=== PATIENT | female | born 1940 | race Caucasian/White ===

== ENCOUNTER 2017-11-05 16:35 | Emergency (ER) | payer MEDICARE ==
[2017-11-05] MEDS ORDERED: predniSONE TAB* 20 MG PO ONE (17:17)
--- NOTE | 2017-11-05 17:28 | RAD ---
HISTORY: Shortness of breath COMPARISONS: November 01, 2014 VIEWS: 4: Frontal dual-energy and lateral views of the chest. FINDINGS: CARDIOMEDIASTINAL SILHOUETTE: The cardiomediastinal silhouette is normal. PERLA: The perla are normal. PLEURA: The costophrenic angles are sharp. No pleural abnormalities are noted. LUNG PARENCHYMA: The lungs are clear. ABDOMEN: The upper abdomen is clear. There is no subphrenic gas. BONES AND SOFT TISSUES: There is post surgical change to the right shoulder. OTHER: None. IMPRESSION: NO ACTIVE CARDIOPULMONARY DISEASE.
[2017-11-05 17:32] VITALS: BP 171/89
--- NOTE | 2017-11-05 17:50 | ED ---
Syed George Jennifer, scribed for Matteo Hobbs MD on 11/05/17 at 1719 . Respiratory - HPI Summary HPI Summary: The patient is a 77 year old female who presents with difficulties breathing from an asthma attack this morning that is now resolved. The patient complains of coughing and wheezing. She denies fever, chest pressure, chest tightness, abdominal pain. Her difficulty breathing was alleviated by an inhaler treatment. - History of Current Complaint Chief Complaint: EDUpperRespComplaint Stated Complaint: ASTHMA EVAL Time Seen by Provider: 11/05/17 17:11 Hx Obtained From: Patient Onset/Duration: Sudden Onset, Lasting Hours - this morning, Resolved Timing: Intermittent Episodes Lasting: - few hours Initial Severity: Mild Current Severity: None Pain Intensity: 0 Character: Wheezing, Cough (Nonproductive) Sputum Amount: None Aggravating Factor(s): Nothing Alleviating Factor(s): Other - inhaler treatment - Allergy/Home Medications Allergies/Adverse Reactions: Allergies Allergy/AdvReac Type Severity Reaction Status Date / Time shellfish derived Allergy Anaphylatic Verified 11/05/17 16:42 Shock PMH/Surg Hx/FS Hx/Imm Hx Endocrine/Hematology History: Denies: Hx Diabetes Respiratory History: Reports: Hx Asthma Musculoskeletal History: Denies: Hx Osteoporosis Sensory History: Reports: Hx Contacts or Glasses - Cancer History Hx Chemotherapy: No Hx Radiation Therapy: No Infectious Disease History: No Infectious Disease History: Denies: Traveled Outside the [place] in Last 30 Days - Family History Known Family History: Negative: Renal Disease - Social History Alcohol Use: Occasionally Substance Use Type: Reports: None Hx Tobacco Use: Yes - FORMER Smoking Status (MU): Former Smoker Review of Systems Negative: Fever Negative: Chest Pain Positive: Shortness Of Breath - now resolved, Cough, Other - wheezing Negative: Abdominal Pain All Other Systems Reviewed And Are Negative: Yes Physical Exam - Summary Physical Exam Summary: Appearance: Well appearing, no pain distress Skin: warm, dry, reflects adequate perfusion Head/face: normal Eyes: EOMI, YAYO ENT: normal, throat clear Neck: supple, non-tender Respiratory: CTA, breath sounds present, no wheezes, respiratory rate is normal Cardiovascular: RRR, pulses symmetrical Abdomen: non-tender, soft Bowel Sounds: present Musculoskeletal: normal, strength/ROM intact Neuro: normal, sensory motor intact, A&Ox3 Triage Information Reviewed: Yes Vital Signs On Initial Exam: Initial Vitals Temp Pulse Resp BP Pulse Ox 97.8 F 75 20 159/61 98 11/05/17 16:37 11/05/17 16:37 11/05/17 16:37 11/05/17 16:37 11/05/17 16:37 Vital Signs Reviewed: Yes Diagnostics - Vital Signs Vital Signs Temp Pulse Resp BP Pulse Ox 11/05/17 16:37 97.8 F 75 20 159/61 98 - Laboratory Lab Statement: Any lab studies that have been ordered have been reviewed, and results considered in the medical decision making process. - Radiology CXR Xray Interpretation: No Acute Changes - NO ACTIVE CARDIOPULMONARY DISEASE. Dr. Hobbs has reviewed this report. Radiology Interpretation Completed By: Radiologist Disposition - Course Course Of Treatment: hx of asthma. Some mild sx this am. Feeling well now. Gave steroids, refilled HFA. F/U PMD. Rx for same. CXR neg. - Diagnoses Provider Diagnoses: Asthma exacerbation Discharge - Sign-Out/Discharge Documenting (check all that apply): Discharge/Admit/Transfer - Discharge Plan Condition: Good Disposition: HOME Prescriptions: Albuterol HFA INHALER* [Ventolin HFA Inhaler*] 2 puff INH Q4H PRN #1 mdi PRN Reason: Shortness Of Breath predniSONE TAB* [Deltasone TAB*] 50 mg PO DAILY #3 tab Patient Education Materials: Asthma (ED) Referrals: Jaleesa Ross MD [Primary Care Provider] - Additional Instructions: Call your doctor in the morning for follow up. Return with fever, wheezing, worse, new symptoms or other concerns as discussed. See your doctor to prescribe a controller medication for asthma. - Billing Disposition and Condition Condition: GOOD Disposition: HOME The documentation as recorded by the Syed meehan Jennifer accurately reflects the service I personally performed and the decisions made by , Matteo Hobbs MD.
== END 2017-11-05 17:29 | disposition home or self-care (01) ==
LOC: ED 16:35
DX: J45.901 Unspecified asthma with (acute) exacerbation (principal); Z87.891 Personal history of nicotine dependence; R06.02 Shortness of breath
CPT/HCPCS: 71046; 99282; J7512

== ENCOUNTER 2018-11-24 15:30 | Observation (INO) | payer MEDICARE ==
[2018-11-24] MEDS ORDERED: Albuterol 0.5% CONC NEB.SOL* 5 MG/ML 20 ml BOT INH ONE ×2 (19:35→21:43)
[2018-11-24] MEDS ORDERED: methylPREDNISolone 125 MG* 2 ML VIAL IV ONE (19:35)
--- NOTE | 2018-11-24 19:42 | ED ---
Shortness of Breath - HPI Summary HPI Summary: Patient is a 78 y/o F presenting to ED with complaints of SOB and wheezing. Sx onset a week ago and progressively worsened, resulting in today's ED visit. PMHx of asthma. Patient notes that she has used albuterol inhaler but still has experienced Sx. Patient is supposed to be taking Flovent regularly but has only been taking it as needed per patient's son. Son reports that the patient has not had any major asthma attacks in recent years. The son additionally notes that the patient's present wheezing is worse than he has previously heard. FMHx of cardiac disease endorsed. Patient notes that she had a "small bout" of Lyme disease a few years ago. Hx of HTN, patient claims that she has been prescribed lisinopril but does not take it as prescribed. PSHx of bilateral hip replacement , right shoulder and left foot surgery. Patient is a former smoker, denies substance usage but endorses occasional alcohol usage. On triage, pain is denied , movement is noted to aggravate Sx. Home medications and allergies are reviewed. Grandson and son are present in the room. - History of Current Complaint Chief Complaint: EDAsthma Time Seen by Provider: 11/24/18 19:26 Hx Obtained From: Patient, Family/Cigar Roller Onset/Duration: Lasting Weeks - one week ago, Still Present, Worse Since Timing: Constant Current Severity: None - pain denied Dyspnea At: Exertion Aggrevating Factors: Movement Alleviating Factors: Nothing Associated Signs & Symptoms: Wheezing - Allergy/Home Medications Allergies/Adverse Reactions: Allergies Allergy/AdvReac Type Severity Reaction Status Date / Time shellfish derived Allergy Anaphylatic Verified 11/18/18 13:51 Shock Home Medications: Home Medications Fluticasone HFA 110 mcg(NF) [Flovent HFA 110 mcg(NF)] 110 mcg INH BID 11/24/18 [ History Confirmed 11/24/18] PMH/Surg Hx/FS Hx/Imm Hx Endocrine/Hematology History: Denies: Hx Diabetes Cardiovascular History: Reports: Hx Hypertension Denies: Hx Pacemaker/ICD Respiratory History: Reports: Hx Asthma History: Denies: Hx Renal Disease Musculoskeletal History: Denies: Hx Osteoporosis Sensory History: Reports: Hx Contacts or Glasses Denies: Hx Hearing Aid Opthamlomology History: Reports: Hx Contacts or Glasses Psychiatric History: Denies: Hx Panic Disorder - Cancer History Hx Chemotherapy: No Hx Radiation Therapy: No - Surgical History Surgery Procedure, Year, and Place: BILATERAL HIPS REPLACED. RIGHT SHOULDER. LEFT FOOT Infectious Disease History: No Infectious Disease History: Denies: Traveled Outside the [place] in Last 30 Days - Family History Known Family History: Positive: Cardiac Disease Negative: Renal Disease - Social History Alcohol Use: Occasionally Alcohol Amount: Glass of wine Hx Substance Use: No Substance Use Type: Reports: None Hx Tobacco Use: Yes - FORMER Smoking Status (MU): Former Smoker Review of Systems Negative: Fever - ON VTIALS, TEMP IS 99.4 F Respiratory: Other - POSITIVE - WHEEZING Positive: Shortness Of Breath All Other Systems Reviewed And Are Negative: Yes Physical Exam - Summary Physical Exam Summary: Appearance: Well-appearing, Well-nourished, lying in bed comfortably Skin: Warm, dry, no obvious rash Eyes: sclera anicteric, no conjunctival pallor ENT: mucous membranes moist, pharynx appears normal Neck: Supple, nontender Respiratory: Mild respiratory distress is noted with any exertion but none at rest. She speaks in full sentences. Diffuse expiratory wheezing with prolonged expiratory phase. Cardiovascular: Normal S1, S2. No murmurs. Normal distal pulses in tibial and radial bilaterally. Abdomen: Soft, nontender, normal active bowel sounds present Musculoskeletal: Normal, Strength/ROM Intact Neurological: A&Ox3, awake and alert, mentation is normal, speech is fluent and appropriate Psychiatric: affect is normal, does not appear anxious or depressed Triage Information Reviewed: Yes Vital Signs On Initial Exam: Initial Vitals Temp Pulse Resp BP Pulse Ox 99.4 F 105 22 148/90 96 11/24/18 15:34 11/24/18 15:34 11/24/18 15:34 11/24/18 15:34 11/24/18 15:34 Vital Signs Reviewed: Yes Diagnostics - Vital Signs Vital Signs Temp Pulse Resp BP Pulse Ox 11/24/18 17:23 99.5 F 82 22 158/104 95 11/24/18 15:34 99.4 F 105 22 148/90 96 - Laboratory Result Diagrams: 11/24/18 20:16 11/24/18 20:16 Lab Statement: Any lab studies that have been ordered have been reviewed, and results considered in the medical decision making process. - Radiology CXR Radiology Interpretation Completed By: ED Physician Summary of Radiographic Findings: No acute process, pending official report. Re-Evaluation - Re-Evaluation First Eval Re-Evaluation Time: 21:42 Comment: Patient reports no improvement of Sx, results of labs and tests discussed. She is agreeable with admission. Course/Dx - Course Course Of Treatment: Patient is a 78 y/o F presenting to ED with complaints of SOB and wheezing. Sx onset a week ago and progressively worsened, resulting in today's ED visit. PMHx of asthma. Patient notes that she has used albuterol inhaler but still has experienced Sx. Patient is supposed to be taking Flovent regularly but has only been taking it as needed per patient's son. Son reports that the patient has not had any major asthma attacks in recent years. The son additionally notes that the patient's present wheezing is worse than he has previously heard. On phyiscal exam, Mild respiratory distress is noted with any exertion but none at rest. She speaks in full sentences. Diffuse expiratory wheezing with prolonged expiratory phase. CXR showed no acute process. Labs showed Plt count 132, BUN/creatinine ratio 26.4, glucose 147. During ED course, patient received solu-medrol 125 mg IV ED ONCE ONE, magnesium sulfate 2 gm in 50 mls @ 50 mls/hr IVPB ED ONCE ONE, albuterol 5 ml INH .RATE = 10 mg/hr one x2. After medications, patient experienced no relief in Sx. Patient is agreeable with admission. Patient's case was discussed with Dr. Zavala, Dr. Zavala accepts for admission. - Diagnoses Provider Diagnoses: Asthma exacerbation - Physician Notifications Discussed Care of Patient With: Nancie Zavala Time Discussed With Above Provider: 21:46 Instructed by Provider To: Other - [id number] - Patient's case was discussed with Dr. Zavala, Dr. Zavala accepts for admission. - Critical Care Time Critical Care Time: 30-74 min - 30 minutes CCT Discharge - Sign-Out/Discharge Documenting (check all that apply): Patient Departure - admit Patient Received Moderate/Deep Sedation with Procedure: No - Discharge Plan Condition: Good Disposition: ADMITTED TO [facility] - Billing Disposition and Condition Condition: GOOD Disposition: Admitted to [facility] - Attestation Statements Document Initiated by Scribe: Yes Documenting Scribe: RALPH TAN Provider For Whom Scribe is Documenting (Include Credential): SHREE AMBRIZ MD Scribe Attestation: I, RALPH TAN, scribed for SHREE AMBRIZ MD on 11/25/18 at 0326. Scribe Documentation Reviewed: Yes Provider Attestation: The documentation as recorded by the scribeRALPH accurately reflects the service I personally performed and the decisions made by me, SHREE AMBRIZ MD Status of Scribe Document: Viewed
[2018-11-24 20:24] LABS: ABS Eosinophils 0.1 10^3/ul (0-0.6); ABS Monocytes 0.5 10^3/ul (0-0.8); ABS Neutrophils 2.4 10^3/ul (1.5-7.7); Eosinophil % 3.2 %; Hematocrit 40 % (35-47); Hemoglobin 13.1 g/dL (12.0-16.0); Lymphocyte % 24.6 %; Mean Corpuscular HGB Conc 33 g/dL (31-36); Mean Corpuscular Hemoglobin 30 pg (27-31); Mean Corpuscular Volume 91 fL (80-97); Mean Platelet Volume 9.9 fL (7.4-10.4); Platelet Count 132 10^3/uL (150-450); Red Blood Count 4.32 10^6 /uL (3.70-4.87); Red Cell Distribution Width 12 % (10.5-15); White Blood Count 4.1 10^3/uL (3.5-10.8)
[2018-11-24 20:39] LABS: Albumin 4.3 g/dL (3.2-5.2); BUN/Creatinine Ratio 26.4 (8-20); Calcium 9.9 mg/dL (8.6-10.3); EGFR African American 94.8 (>60); EGFR Non-African American 78.3 (>60); Globulin 2.2 g/dL (2-4); Potassium 3.6 mmol/L (3.5-5.0); Total Bilirubin 0.7 mg/dL (0.2-1.0); Total Protein 6.5 g/dL (6.4-8.9)
[2018-11-24] MEDS ORDERED: Magnesium Sulfate 2 GM IV* 2 GM/50 ML BAG IVPB ONE (21:43)
[2018-11-24] MEDS ORDERED: Al Hydrox/Mg Hydrox/Simet LIQ* 30 ML UDC PO PRN (22:55)
[2018-11-24] MEDS ORDERED: Acetaminophen TAB* 325 MG PO PRN (22:55)
[2018-11-24] MEDS ORDERED: Ondansetron INJ* 2 MG/ML VIAL IV PRN (22:55)
[2018-11-24] MEDS ORDERED: Senna TAB PO PRN (22:55)
[2018-11-24] MEDS ORDERED: Docusate CAP* 100 MG PO PRN (22:55)
[2018-11-24] MEDS ORDERED: Albuterol/Ipratropium NEB.SOL* Albuterol 2.5 MG/Ipratropium 0.5 MG 3 ML INH PRN (22:58)
[2018-11-24 23:01] LABS: C Reactive Protein 7.76 mg/L (<8.01)
[2018-11-24] MEDS ORDERED: Azithromycin 500 mg/250 ml NS 500 MG/250 ML BAG IVPB ONE (23:01)
[2018-11-24] MEDS ORDERED: Lactated Ringers 1000 ML Bag* 1,000 ML IV ONE (23:08)
[2018-11-25] MEDS: Albuterol 2.5 MG/3 ML NEB.SOL* (0.083%) INH SCH ×5 (00:32→16:09)
--- NOTE | 2018-11-25 01:34 | HP ---
CC: Jaleesa Ross MD* HISTORY AND PHYSICAL: DATE OF ADMISSION: 11/24/18 TIME OF EVALUATION: 2199 PRIMARY CARE PHYSICIAN: Jaleesa Ross MD CHIEF COMPLAINT: Shortness of breath and cough with wheeze. HISTORY OF PRESENT ILLNESS: This is a 78-year-old female with past medical history of asthma, who presents to the emergency room with 3 days of worsening wheeze and shortness of breath. The patient's symptoms began about 3 days ago. She was using her albuterol inhaler with no spacer with minimal relief. She also has Flovent, but she only uses that as needed and was not using it. She states she really has not been coughing. No fevers or chills. No chest pain. She does state she has seasonal allergies and she thinks she is taking Zyrtec, but she is not sure. No changes in her weight. No lower extremity swelling. She had a physical exam 2 weeks ago and it was unremarkable workup. Her son sates that when he goes upstairs to her house, he feels short of breath. He is worried about mold exposure in the house. No nausea, vomiting or diarrhea. She does have some constipation. No urinary symptoms. Otherwise, review of systems negative. In the emergency room, the patient had labs and imaging. She was given Solu-Medrol 25 mg, magnesium 2 g, albuterol noncontinuous and still having significant diffuse wheezing with tachycardia and referred to the hospitalist service for further evaluation. PAST MEDICAL HISTORY: 1. Asthma. 2. Hypertension. 3. Seasonal allergies. 4. The patient is being evaluated for left-sided headache issues, scheduled to see Dr. Garnica and supposed to have an MRI this week. 5. VIVIANA on CPAP MEDICATIONS: 1. Lisinopril 5 mg p.o. daily. 2. Flovent 110 mcg inhaled b.i.d. as needed. 3. Albuterol 2 puffs every 4 hours as needed. ALLERGIES: SHELLFISH allergy . FAMILY HISTORY: Mother in her 80s from a stroke. Father from respiratory issues, unclear of the age. SOCIAL HISTORY: The patient lives at home alone with her dogs. She is independent of her ADLs. She is a remote smoker, more than 40 years ago. At this time, she has a 10 pack year history. She has a glass of wine at bedtime. No illicit drug use. Her son, Papi Reese Jr., is her healthcare proxy. She is a full code. REVIEW OF SYSTEMS: A 14-point review of systems as mentioned in the HPI; otherwise, negative. PHYSICAL EXAMINATION GENERAL: No acute distress. Her son and grandson are sitting at the bedside. VITAL SIGNS: Temp is 99.5, pulse rate is 108, respiratory rate is 16, oxygen saturation 100% on 2 L, blood pressure 175/93. HEENT: Head: Normocephalic. Pupils are equal and reactive, anicteric. Oropharynx: Mucous membranes moist. NECK: Supple. No adenopathy. RESPIRATORY: Audible wheezing at the bedside. Bilateral diffuse expiratory wheezing with poor aeration. No increased work of breathing. CARDIAC: Tachycardia. Soft systolic murmur heard throughout. ABDOMEN: Soft, nontender, nondistended. EXTREMITIES: No clubbing, cyanosis, or edema; +2 DPs. NEUROLOGIC: Alert and oriented x3. No gross focal neurologic deficits. DIAGNOSTIC STUDIES/LAB DATA: White count 4.1, hemoglobin 13.1, hematocrit 40, platelets 132. Sodium 139, potassium 3.6, chloride 106, bicarb 25, BUN 19, creatinine 0.72, glucose 147. Radiographic Data: Chest x-ray unremarkable on wet read. ASSESSMENT: This is a 78-year-old female with a past medical history of asthma and seasonal allergy, sent to the emergency room with 3 days of worsening shortness of breath and wheeze. 1. Shortness of breath and wheeze. Assessment: The patient's history and physical are consistent for an asthma exacerbation most likely secondary to seasonal allergies. She does not have a white count. No findings on chest x-ray though official chest x-ray read has not been read. Plan: We will admit her for asthma exacerbation. Continue her on albuterol nebulizers q.2 hour p.r.n. and schedule q.4 hours and DuoNeb. We will continue her Flovent and continue her on prednisone 40 mg starting in the morning. We will start her on Flonase and Claritin, which is on formulary. We will also given her azithromycin for antiinflammatory component of asthma exacerbation. Recommend if no improvement, she should be evaluated by Dr. Marino. She has not seen a bulk delivery driver as an outpatient. We will also give her gentle IV fluids. 2. Chronic medical problem, hypertension. We will continue her on her lisinopril 5 mg p.o. daily. 3. FEN: Regular diet with gentle IV fluids. 4. DVT prophylaxis: The patient scores a high risk. We will place her on Lovenox 40 subcu daily. 5. Code status: Full code. PATIENT TIME: Greater than 45 minutes was spent doing the history and physical , more than half the time spent in direct patient contact. [id number]/CPS #: [id number] MTDEric
[2018-11-25] MEDS: Melatonin 3 MG TAB PO PRN ×2 (01:57→21:05)
[2018-11-25] MEDS: Enoxaparin(*) 40 MG/0.4 ML SYR SUBCUT SCH (05:35)
[2018-11-25 06:07] LABS: ABS Lymphocytes 0.3 10^3/ul (1.0-4.8); ABS Monocytes 0.1 10^3/ul (0-0.8); ABS Neutrophils 4.9 10^3/ul (1.5-7.7); Eosinophil % 0.1 %; Hematocrit 37 % (35-47); Hemoglobin 12.2 g/dL (12.0-16.0); Lymphocyte % 5.5 %; Mean Corpuscular HGB Conc 33 g/dL (31-36); Mean Corpuscular Hemoglobin 30 pg (27-31); Mean Corpuscular Volume 92 fL (80-97); Mean Platelet Volume 10.3 fL (7.4-10.4); Platelet Count 127 10^3/uL (150-450); Red Blood Count 4.03 10^6 /uL (3.70-4.87); Red Cell Distribution Width 12 % (10.5-15); White Blood Count 5.3 10^3/uL (3.5-10.8)
[2018-11-25 06:26] LABS: BUN/Creatinine Ratio 22.5 (8-20); Calcium 9.8 mg/dL (8.6-10.3); EGFR African American 96.3 (>60); EGFR Non-African American 79.6 (>60); Potassium 3.9 mmol/L (3.5-5.0)
[2018-11-25] MEDS ORDERED: predniSONE TAB* 20 MG PO SCH (09:00)
[2018-11-25] MEDS ORDERED: Pneumococcal *Vac Polyvalent 0.5 ML VIAL IM ONE (09:00)
[2018-11-25] MEDS ORDERED: LoraTADine TAB(NF) 10 MG TAB (AUTOSUB to CETIRIZINE) PO SCH (09:00)
[2018-11-25] MEDS ORDERED: Magnesium Sulfate 2 GM IV* 2 GM/50 ML BAG IVPB ONE (09:28)
[2018-11-25] MEDS: Cetirizine* 10 MG TAB PO SCH (10:32)
[2018-11-25] MEDS: methylPREDNISolone SOD 40 MG* 1 ML VIAL IV SCH ×2 (10:33→18:04)
[2018-11-25] MEDS: Mometasone/Formoter 200/5 MDI INH SCH ×2 (11:18→19:18)
[2018-11-25] MEDS: Fluticasone NASAL SPRAY 50MCG* 16 gm SPRAY BTL BOTH NARES SCH (12:10)
[2018-11-25] MEDS: ALPRAZolam TAB* 0.25 MG PO PRN ×2 (12:45→21:05)
--- NOTE | 2018-11-25 16:34 | PN ---
Subjective Date of Service: 11/25/18 Interval History: Patient seen and examined. Patient remains very wheezy and appears extremely anxious. Concerned about her dog and cannot get in touch with her son to take care of him. RN working with patient to resolve the issue. Patient states she has pain in her left ribs with deep inspiration and remains wheezy but not acutely short of breath. Denies chest pain, no n/v, no fever or chills. Objective Active Medications: Acetaminophen (Tylenol Tab*) 650 mg PO Q4H PRN PRN Reason: FEVER/PAIN Al Hydrox/Mg Hydrox/Simethicone (Maalox Plus*) 30 ml PO Q6H PRN PRN Reason: INDIGESTION Albuterol (Ventolin 2.5 Mg/3 Ml Neb.Lisa*) 2.5 mg INH Q4H [facility] Last Admin: 11/25/18 16:09 Dose: 2.5 mg Albuterol (Ventolin 2.5 Mg/3 Ml Neb.Lisa*) 2.5 mg INH Q2H PRN PRN Reason: SOB/WHEEZING Albuterol/Ipratropium (Duoneb (Albuterol 2.5 Mg/Ipratropium 0.5 Mg)) 1 neb INH Q4H PRN PRN Reason: SOB/WHEEZING Last Admin: 11/25/18 14:04 Dose: 1 neb Alprazolam (Xanax Tab*) 0.25 mg PO TID PRN PRN Reason: ANXIETY Last Admin: 11/25/18 12:45 Dose: 0.25 mg Benzonatate (Tessalon Cap*) 200 mg PO TID PRN PRN Reason: COUGH Cetirizine HCl (Zyrtec*) 10 mg PO DAILY [facility] Last Admin: 11/25/18 10:32 Dose: 10 mg Docusate Sodium (Colace Cap*) 100 mg PO BID PRN PRN Reason: CONSTIPATION Enoxaparin Sodium (Lovenox(*)) 40 mg SUBCUT Q24H [facility] Last Admin: 11/25/18 05:35 Dose: 40 mg Fluticasone Propionate (Flonase Nasal [place] 50mcg*) 2 spray BOTH NARES DAILY [facility] Last Admin: 11/25/18 12:10 Dose: 2 spray Azithromycin 250 mg/ Sodium (Chloride) 250 mls @ 250 mls/hr IVPB Q24H [facility] Melatonin (Melatonin) 3 mg PO BEDTIME PRN PRN Reason: SLEEP Last Admin: 11/25/18 01:57 Dose: 3 mg Methylprednisolone Sodium Succinate (Solu-Medrol 40 Mg) 40 mg IV Q8H [facility] Last Admin: 11/25/18 10:33 Dose: 40 mg Mometasone Furoate/Formoterol Fumar (Dulera 200/5 Mdi*) 2 puff INH BID [facility] Last Admin: 11/25/18 11:18 Dose: Not Given Ondansetron HCl (Zofran Inj*) 4 mg IV Q4H PRN PRN Reason: NAUSEA/VOMITING Senna (Senokot Tab*) 1 tab PO BID PRN PRN Reason: CONSTIPATION Vital Signs - 8 hr 11/25/18 11/25/18 11/25/18 11:15 11:17 11:49 Temperature 98.2 F Pulse Rate 92 99 97 Respiratory 20 20 16 Rate Blood Pressure 151/84 146/74 (mmHg) O2 Sat by Pulse 98 96 98 Oximetry 11/25/18 11/25/18 11/25/18 12:45 14:05 15:40 Temperature 98.1 F Pulse Rate 96 100 Respiratory 18 20 20 Rate Blood Pressure 146/65 (mmHg) O2 Sat by Pulse 97 97 Oximetry 11/25/18 11/25/18 16:10 16:22 Temperature Pulse Rate 96 Respiratory 20 18 Rate Blood Pressure (mmHg) O2 Sat by Pulse 98 Oximetry Oxygen Devices in Use Now: None Appearance: alert, anxious Eyes: No Scleral Icterus, PERRLA Ears/Nose/Mouth/Throat: NL Teeth, Lips, Gums, Mucous Membranes Moist Neck: NL Appearance and Movements; NL JVP, Trachea Midline Respiratory: - - tachypneic, shallow respirations with accessory muscle use, bilateral exp wheeze Cardiovascular: NL Sounds; No Murmurs; No JVD, RRR, No Edema Extremities: No Edema, No Clubbing, Cyanosis Skin: No Rash or Ulcers Neurological: Alert and Oriented x 3, NL Gait Nutrition: Taking PO's Result Diagrams: 11/25/18 05:32 11/25/18 05:32 Diagnostic Imaging: Patient Name: KATINA WOODS Medical Record#: [id number] Ordering Physician: Remington Lopez MD Acct.#: [id number] : 1940 Age: 78 Sex: F Location: [address] [place] [address] - MEDICAL/TELEMETRY Exam Date: 11/24/181934 ADM Status: ADM IN Order Information: CHEST PA & LAT 2 VWS Accession Number: [id number] CPT: 20829 Indication: Shortness of breath. 2 views of the chest demonstrates no mediastinal shift. Heart is of normal size and configuration. Lung tan are clear. IMPRESSION: No active cardiopulmonary disease is noted. Assess/Plan/Problems-Billing Assessment: This is a 78 year old female with history of asthma that presented to the ER with complaints of wheeze and dyspnea, admitted with acute asthma exacerbation. - Patient Problems (1) Asthma exacerbation Code(s): J45.901 - UNSPECIFIED ASTHMA WITH (ACUTE) EXACERBATION SNOMED Code(s) : 541483201 Comment: - Increased wheeze this AM, had back to back continuous nebs in ED last night with no relief - Placed back on IV solumedrol, 2 gram mag now, continue albuterol Q4 scheduled with duronebs PRN and dulera - Continue azithromycin (2) HTN (hypertension) Code(s): I10 - ESSENTIAL (PRIMARY) HYPERTENSION SNOMED Code(s): 75098332 Comment: - continue lisinopril daily (3) VIVIANA (obstructive sleep apnea) Code(s): G47.33 - OBSTRUCTIVE SLEEP APNEA (ADULT) (PEDIATRIC) SNOMED Code(s): 01482087 Comment: - Utilize home CPAP (4) Acute anxiety Code(s): F41.9 - ANXIETY DISORDER, UNSPECIFIED SNOMED Code(s): 06985818 Comment: - Start low dose xanax TID, anxiety is likely also contributing to current exacerbation (5) Seasonal allergies Code(s): J30.2 - OTHER SEASONAL ALLERGIC RHINITIS SNOMED Code(s): 798096361 Comment: - Flonase and cetirizine, may also be contributing to current exacerbation
[2018-11-25] MEDS: Benzonatate CAP* 100 MG PO PRN (18:01)
[2018-11-25] MEDS: Albuterol/Ipratropium NEB.SOL* Albuterol 2.5 MG/Ipratropium 0.5 MG 3 ML INH SCH ×3 (19:17→22:42)
[2018-11-25] MEDS: Albuterol 2.5 MG/3 ML NEB.SOL* (0.083%) INH PRN (21:35)
[2018-11-25] MEDS: Azithromycin IV(*) 250 MG in NS 0.9% 250 ML* 250 ML IVPB SCH (23:38)
[2018-11-26] MEDS: methylPREDNISolone SOD 40 MG* 1 ML VIAL IV SCH ×3 (02:30→18:34)
[2018-11-26] MEDS: Albuterol/Ipratropium NEB.SOL* Albuterol 2.5 MG/Ipratropium 0.5 MG 3 ML INH SCH ×6 (03:25→22:27)
[2018-11-26] MEDS: Enoxaparin(*) 40 MG/0.4 ML SYR SUBCUT SCH (05:49)
[2018-11-26] MEDS: Mometasone/Formoter 200/5 MDI INH SCH ×2 (08:42→19:44)
[2018-11-26] MEDS: Cetirizine* 10 MG TAB PO SCH (09:24)
[2018-11-26] MEDS: Fluticasone NASAL SPRAY 50MCG* 16 gm SPRAY BTL BOTH NARES SCH (11:32)
[2018-11-26] MEDS ORDERED: Morphine INJ* 2 MG/ML 1 ML SYRINGE (TWO MG - NEW SYRINGE VERSION) ONE (12:10)
[2018-11-26] MEDS ORDERED: Ketorolac INJ* 15 MG/ML 1 ML VIAL IV PUSH ONE (13:44)
[2018-11-26] MEDS: ALPRAZolam TAB* 0.25 MG PO PRN ×2 (15:12→20:33)
[2018-11-26] MEDS: Benzonatate CAP* 100 MG PO PRN (15:12)
--- NOTE | 2018-11-26 17:19 | PN ---
Subjective Date of Service: 11/26/18 Interval History: Patient seen and examined. States her breathing is a bit better, feels congested with dry, unproductive cough. Remains very anxious about discharge planning. Discussed having her son or daughter here tomorrow to talk about plan (home with VNS, etc.). Denies fever to chills, no acute SOB, no chest pain, complaint of left sided rib pain with movement and cough, improved with pain meds today. Objective Active Medications: Acetaminophen (Tylenol Tab*) 650 mg PO Q4H PRN PRN Reason: FEVER/PAIN Last Admin: 11/25/18 18:02 Dose: 650 mg Al Hydrox/Mg Hydrox/Simethicone (Maalox Plus*) 30 ml PO Q6H PRN PRN Reason: INDIGESTION Albuterol (Ventolin 2.5 Mg/3 Ml Neb.Lisa*) 2.5 mg INH Q2H PRN PRN Reason: SOB/WHEEZING Last Admin: 11/25/18 21:35 Dose: 2.5 mg Albuterol/Ipratropium (Duoneb (Albuterol 2.5 Mg/Ipratropium 0.5 Mg)) 1 neb INH [id number] AWAKE [facility] Last Admin: 11/26/18 16:25 Dose: 1 neb Alprazolam (Xanax Tab*) 0.25 mg PO TID PRN PRN Reason: ANXIETY Last Admin: 11/26/18 15:12 Dose: 0.25 mg Benzonatate (Tessalon Cap*) 200 mg PO TID PRN PRN Reason: COUGH Last Admin: 11/26/18 15:12 Dose: 200 mg Cetirizine HCl (Zyrtec*) 10 mg PO DAILY [facility] Last Admin: 11/26/18 09:24 Dose: 10 mg Docusate Sodium (Colace Cap*) 100 mg PO BID PRN PRN Reason: CONSTIPATION Enoxaparin Sodium (Lovenox(*)) 40 mg SUBCUT Q24H [facility] Last Admin: 11/26/18 05:49 Dose: 40 mg Fluticasone Propionate (Flonase Nasal [place] 50mcg*) 2 spray BOTH NARES DAILY [facility] Last Admin: 11/26/18 11:32 Dose: Not Given Guaifenesin (Mucinex*) 600 mg PO BID [facility] Azithromycin 250 mg/ Sodium (Chloride) 250 mls @ 250 mls/hr IVPB Q24H [facility] Last Admin: 11/25/18 23:38 Dose: 250 mls/hr Melatonin (Melatonin) 3 mg PO BEDTIME PRN PRN Reason: SLEEP Last Admin: 11/25/18 21:05 Dose: 3 mg Methylprednisolone Sodium Succinate (Solu-Medrol 40 Mg) 40 mg IV Q8H [facility] Last Admin: 11/26/18 09:24 Dose: 40 mg Mometasone Furoate/Formoterol Fumar (Dulera 200/5 Mdi*) 2 puff INH BID [facility] Last Admin: 11/26/18 08:42 Dose: 2 puff Morphine Sulfate (Morphine Inj (Syringe))*) 2 mg IV Q4H PRN PRN Reason: PAIN Ondansetron HCl (Zofran Inj*) 4 mg IV Q4H PRN PRN Reason: NAUSEA/VOMITING Senna (Senokot Tab*) 1 tab PO BID PRN PRN Reason: CONSTIPATION Vital Signs - 8 hr 11/26/18 11/26/18 11/26/18 09:40 12:09 12:12 Temperature 98.5 F Pulse Rate 82 84 Respiratory 16 2 22 Rate Blood Pressure 141/81 154/71 (mmHg) O2 Sat by Pulse 98 99 Oximetry 11/26/18 11/26/18 11/26/18 12:58 15:12 16:27 Temperature Pulse Rate 88 88 Respiratory 18 22 16 Rate Blood Pressure (mmHg) O2 Sat by Pulse 96 98 Oximetry Oxygen Devices in Use Now: None Appearance: alert, anxious Eyes: No Scleral Icterus, PERRLA Ears/Nose/Mouth/Throat: NL Teeth, Lips, Gums, Mucous Membranes Moist Neck: NL Appearance and Movements; NL JVP, Trachea Midline Respiratory: - - improved aeration, no wheeze, somewhat course throughout, no rales Cardiovascular: RRR, No Edema Abdominal: NL Sounds; No Tenderness; No Distention, - Extremities: No Edema, No Clubbing, Cyanosis Skin: No Rash or Ulcers Neurological: Alert and Oriented x 3, NL Sensation, NL Gait Nutrition: Taking PO's Result Diagrams: 11/25/18 05:32 11/25/18 05:32 Diagnostic Imaging: Patient Name: KATINA WOODS Medical Record#: [id number] Ordering Physician: Remington Lopez MD Acct.#: [id number] : 1940 Age: 78 Sex: F Location: [address] [place] [address] - MEDICAL/TELEMETRY Exam Date: 11/24/181934 ADM Status: ADM IN Order Information: CHEST PA & LAT 2 VWS Accession Number: [id number] CPT: 69726 Indication: Shortness of breath. 2 views of the chest demonstrates no mediastinal shift. Heart is of normal size and configuration. Lung tan are clear. IMPRESSION: No active cardiopulmonary disease is noted. Assess/Plan/Problems-Billing Assessment: This is a 78 year old female with history of asthma that presented to the ER with complaints of wheeze and dyspnea, admitted with acute asthma exacerbation. - Patient Problems (1) Asthma exacerbation Code(s): J45.901 - UNSPECIFIED ASTHMA WITH (ACUTE) EXACERBATION SNOMED Code(s) : 959405970 Comment: - Wheeze improved after mag and IV steroids, continue nebs, dulera and azithromycin - Start mucinex BID, add flutter valve (2) Rib pain on left side Code(s): R07.81 - PLEURODYNIA SNOMED Code(s): 615783565 Comment: - Persistent with cough and movement, likely secondary to severe asthma exac and accessory muscle use, no relief with tylenol - Trialed morphine for pain and for tachypnea with much improvement in both, continue Q4h PRN (3) HTN (hypertension) Code(s): I10 - ESSENTIAL (PRIMARY) HYPERTENSION SNOMED Code(s): 16678512 Comment: - continue lisinopril daily (4) VIVIANA (obstructive sleep apnea) Code(s): G47.33 - OBSTRUCTIVE SLEEP APNEA (ADULT) (PEDIATRIC) SNOMED Code(s): 28291813 Comment: - Utilize home CPAP (5) Acute anxiety Code(s): F41.9 - ANXIETY DISORDER, UNSPECIFIED SNOMED Code(s): 01789225 Comment: - Continue low dose xanax TID, anxiety is likely also contributing to current exacerbation (6) Seasonal allergies Code(s): J30.2 - OTHER SEASONAL ALLERGIC RHINITIS SNOMED Code(s): 508991870 Comment: - Flonase and cetirizine, may also be contributing to current exacerbation Status and Disposition: Inpatient, dispo home with VNS when medically optimized.
[2018-11-26] MEDS: guaiFENesin ER TAB 600 MG PO SCH (20:33)
[2018-11-26] MEDS: Melatonin 3 MG TAB PO PRN (20:33)
[2018-11-26] MEDS: Morphine INJ* 2 MG/ML 1 ML SYRINGE (TWO MG - NEW SYRINGE VERSION) IV PRN (20:34)
[2018-11-26] MEDS: Azithromycin IV(*) 250 MG in NS 0.9% 250 ML* 250 ML IVPB SCH (23:33)
[2018-11-27] MEDS: methylPREDNISolone SOD 40 MG* 1 ML VIAL IV SCH ×3 (02:11→17:05)
[2018-11-27] MEDS: Albuterol/Ipratropium NEB.SOL* Albuterol 2.5 MG/Ipratropium 0.5 MG 3 ML INH SCH ×6 (03:21→23:47)
[2018-11-27] MEDS: Enoxaparin(*) 40 MG/0.4 ML SYR SUBCUT SCH (05:56)
[2018-11-27] MEDS: Mometasone/Formoter 200/5 MDI INH SCH ×2 (08:03→20:34)
[2018-11-27] MEDS: Cetirizine* 10 MG TAB PO SCH (09:31)
[2018-11-27] MEDS: guaiFENesin ER TAB 600 MG PO SCH ×2 (09:31→21:08)
[2018-11-27] MEDS: ALPRAZolam TAB* 0.25 MG PO PRN ×3 (09:31→21:08)
[2018-11-27] MEDS: Benzonatate CAP* 100 MG PO PRN ×3 (09:31→21:08)
--- NOTE | 2018-11-27 11:03 | PN ---
Subjective Date of Service: 11/27/18 Interval History: Patient seen and examined. States she feels her breathing is worse today, wheezing again, feeling course, afebrile, mildly tachypneic. Remains anxious. Objective Active Medications: Acetaminophen (Tylenol Tab*) 650 mg PO Q4H PRN PRN Reason: FEVER/PAIN Last Admin: 11/25/18 18:02 Dose: 650 mg Al Hydrox/Mg Hydrox/Simethicone (Maalox Plus*) 30 ml PO Q6H PRN PRN Reason: INDIGESTION Albuterol (Ventolin 2.5 Mg/3 Ml Neb.Lisa*) 2.5 mg INH Q2H PRN PRN Reason: SOB/WHEEZING Last Admin: 11/25/18 21:35 Dose: 2.5 mg Albuterol/Ipratropium (Duoneb (Albuterol 2.5 Mg/Ipratropium 0.5 Mg)) 1 neb INH [id number] AWAKE [facility] Last Admin: 11/27/18 06:11 Dose: 1 neb Alprazolam (Xanax Tab*) 0.25 mg PO TID PRN PRN Reason: ANXIETY Last Admin: 11/27/18 09:31 Dose: 0.25 mg Benzonatate (Tessalon Cap*) 200 mg PO TID PRN PRN Reason: COUGH Last Admin: 11/27/18 09:31 Dose: 200 mg Cetirizine HCl (Zyrtec*) 10 mg PO DAILY [facility] Last Admin: 11/27/18 09:31 Dose: 10 mg Docusate Sodium (Colace Cap*) 100 mg PO BID PRN PRN Reason: CONSTIPATION Enoxaparin Sodium (Lovenox(*)) 40 mg SUBCUT Q24H [facility] Last Admin: 11/27/18 05:56 Dose: 40 mg Fluticasone Propionate (Flonase Nasal [place] 50mcg*) 2 spray BOTH NARES DAILY [facility] Last Admin: 11/26/18 11:32 Dose: Not Given Guaifenesin (Mucinex*) 600 mg PO BID [facility] Last Admin: 11/27/18 09:31 Dose: 600 mg Azithromycin 250 mg/ Sodium (Chloride) 250 mls @ 250 mls/hr IVPB Q24H [facility] Last Admin: 11/26/18 23:33 Dose: 250 mls/hr Melatonin (Melatonin) 3 mg PO BEDTIME PRN PRN Reason: SLEEP Last Admin: 11/26/18 20:33 Dose: 3 mg Methylprednisolone Sodium Succinate (Solu-Medrol 40 Mg) 40 mg IV Q8H [facility] Last Admin: 11/27/18 09:41 Dose: 40 mg Mometasone Furoate/Formoterol Fumar (Dulera 200/5 Mdi*) 2 puff INH BID [facility] Last Admin: 11/27/18 08:03 Dose: 2 puff Morphine Sulfate (Morphine Inj (Syringe))*) 2 mg IV Q4H PRN PRN Reason: PAIN Last Admin: 11/26/18 20:34 Dose: 2 mg Ondansetron HCl (Zofran Inj*) 4 mg IV Q4H PRN PRN Reason: NAUSEA/VOMITING Senna (Senokot Tab*) 1 tab PO BID PRN PRN Reason: CONSTIPATION Vital Signs - 8 hr 11/27/18 11/27/18 11/27/18 03:45 03:50 06:13 Temperature 97.8 F Pulse Rate 105 83 89 Respiratory 18 14 Rate Blood Pressure 150/83 (mmHg) O2 Sat by Pulse 98 99 Oximetry 11/27/18 11/27/18 08:06 09:31 Temperature Pulse Rate 85 Respiratory 18 20 Rate Blood Pressure (mmHg) O2 Sat by Pulse 98 Oximetry Oxygen Devices in Use Now: None Appearance: alert, anxious Eyes: No Scleral Icterus, PERRLA Ears/Nose/Mouth/Throat: NL Teeth, Lips, Gums, Mucous Membranes Moist Neck: NL Appearance and Movements; NL JVP, Trachea Midline Respiratory: - - tachypneic, course, bilateral expiratory wheeze, scattered rhonchi Abdominal: NL Sounds; No Tenderness; No Distention Lymphatic: No Cervical Adenopathy Extremities: No Edema, No Clubbing, Cyanosis Skin: No Rash or Ulcers Neurological: Alert and Oriented x 3, NL Gait, NL Muscle Strength and Tone Nutrition: Taking PO's Result Diagrams: 11/25/18 05:32 11/25/18 05:32 Diagnostic Imaging: Patient Name: KATINA WOODS Medical Record#: [id number] Ordering Physician: Remington Lopez MD Acct.#: [id number] : 1940 Age: 78 Sex: F Location: [address] - MEDICAL/TELEMETRY Exam Date: 11/24/181934 ADM Status: ADM IN Order Information: CHEST PA & LAT 2 VWS Accession Number: [id number] CPT: 94263 Indication: Shortness of breath. 2 views of the chest demonstrates no mediastinal shift. Heart is of normal size and configuration. Lung tan are clear. IMPRESSION: No active cardiopulmonary disease is noted. Assess/Plan/Problems-Billing Assessment: This is a 78 year old female with history of asthma that presented to the ER with complaints of wheeze and dyspnea, admitted with acute asthma exacerbation. - Patient Problems (1) Asthma exacerbation Code(s): J45.901 - UNSPECIFIED ASTHMA WITH (ACUTE) EXACERBATION SNOMED Code(s) : 631735619 Comment: - Wheezing again today with increased course breath sounds, saturation is adequate on room air, will repeat chest xray today, concern for early consolidation despite atbx and steroids - Continue mucinex BID and flutter valve - Continue IV steroids, nebs and inhalers (2) Rib pain on left side Code(s): R07.81 - PLEURODYNIA SNOMED Code(s): 140911039 Comment: - Persistent with cough and movement, likely secondary to severe asthma exac and accessory muscle use, no relief with tylenol - Continue morphine Q4h PRN (3) HTN (hypertension) Code(s): I10 - ESSENTIAL (PRIMARY) HYPERTENSION SNOMED Code(s): 15676237 Comment: - continue lisinopril daily (4) VIVIANA (obstructive sleep apnea) Code(s): G47.33 - OBSTRUCTIVE SLEEP APNEA (ADULT) (PEDIATRIC) SNOMED Code(s): 06749043 Comment: - Utilize home CPAP (5) Acute anxiety Code(s): F41.9 - ANXIETY DISORDER, UNSPECIFIED SNOMED Code(s): 03317328 Comment: - Continue low dose xanax TID, anxiety is likely also contributing to current exacerbation (6) Seasonal allergies Code(s): J30.2 - OTHER SEASONAL ALLERGIC RHINITIS SNOMED Code(s): 620704662 Comment: - Flonase and cetirizine, may also be contributing to current exacerbation Status and Disposition: Inpatient, dispo home with VNS when medically optimized.
[2018-11-27] MEDS: Morphine INJ* 2 MG/ML 1 ML SYRINGE (TWO MG - NEW SYRINGE VERSION) IV PRN ×2 (13:47→21:08)
[2018-11-27] MEDS: Fluticasone NASAL SPRAY 50MCG* 16 gm SPRAY BTL BOTH NARES SCH (13:47)
[2018-11-27 14:30] LABS: ABS Lymphocytes 0.4 10^3/ul (1.0-4.8); ABS Monocytes 0.4 10^3/ul (0-0.8); ABS Neutrophils 9.5 10^3/ul (1.5-7.7); Hematocrit 38 % (35-47); Hemoglobin 12.6 g/dL (12.0-16.0); Lymphocyte % 3.4 %; Mean Corpuscular HGB Conc 33 g/dL (31-36); Mean Corpuscular Hemoglobin 30 pg (27-31); Mean Corpuscular Volume 92 fL (80-97); Mean Platelet Volume 10.3 fL (7.4-10.4); Nucleated Red Blood Cells % 0.1; Platelet Count 168 10^3/uL (150-450); Red Blood Count 4.16 10^6 /uL (3.70-4.87); Red Cell Distribution Width 13 % (10.5-15); White Blood Count 10.3 10^3/uL (3.5-10.8)
[2018-11-27 14:52] LABS: Albumin 4.1 g/dL (3.2-5.2); Albumin/Globulin Ratio 1.8 (1-3); BUN/Creatinine Ratio 29.5 (8-20); Calcium 10.2 mg/dL (8.6-10.3); EGFR African American 86.4 (>60); EGFR Non-African American 71.4 (>60); Globulin 2.3 g/dL (2-4); Potassium 4.6 mmol/L (3.5-5.0); Total Bilirubin 0.6 mg/dL (0.2-1.0); Total Protein 6.4 g/dL (6.4-8.9)
[2018-11-27] MEDS: Melatonin 3 MG TAB PO PRN (21:08)
[2018-11-28] MEDS: Azithromycin IV(*) 250 MG in NS 0.9% 250 ML* 250 ML IVPB SCH (01:04)
[2018-11-28] MEDS: methylPREDNISolone SOD 40 MG* 1 ML VIAL IV SCH ×3 (01:04→18:17)
[2018-11-28] MEDS: Albuterol/Ipratropium NEB.SOL* Albuterol 2.5 MG/Ipratropium 0.5 MG 3 ML INH SCH ×4 (03:27→19:46)
[2018-11-28] MEDS: Albuterol HFA INHALER* 8 gm MDI INH PRN (03:40)
[2018-11-28] MEDS: Enoxaparin(*) 40 MG/0.4 ML SYR SUBCUT SCH (05:47)
[2018-11-28] MEDS: Mometasone/Formoter 200/5 MDI INH SCH ×2 (07:18→19:46)
[2018-11-28] MEDS: guaiFENesin ER TAB 600 MG PO SCH ×2 (08:05→20:24)
[2018-11-28] MEDS: Cetirizine* 10 MG TAB PO SCH (08:05)
[2018-11-28] MEDS: Fluticasone NASAL SPRAY 50MCG* 16 gm SPRAY BTL BOTH NARES SCH (08:05)
[2018-11-28] MEDS: Benzonatate CAP* 100 MG PO PRN (11:08)
[2018-11-28] MEDS: ALPRAZolam TAB* 0.25 MG PO PRN ×2 (12:02→20:24)
[2018-11-28] MEDS: Morphine INJ* 2 MG/ML 1 ML SYRINGE (TWO MG - NEW SYRINGE VERSION) IV PRN (12:03)
--- NOTE | 2018-11-28 18:50 | PN ---
Subjective Date of Service: 11/28/18 Interval History: Resting in bed on assessment. Reports breathing is about the same as yesterday. Reports she continues to experience significant wheeze. Reports mild sob. Denies cp, palpitations, fever, chills, nausea. Objective Active Medications: Acetaminophen (Tylenol Tab*) 650 mg PO Q4H PRN PRN Reason: FEVER/PAIN Last Admin: 11/25/18 18:02 Dose: 650 mg Al Hydrox/Mg Hydrox/Simethicone (Maalox Plus*) 30 ml PO Q6H PRN PRN Reason: INDIGESTION Last Admin: 11/28/18 01:02 Dose: 30 ml Albuterol (Ventolin 2.5 Mg/3 Ml Neb.Lisa*) 2.5 mg INH Q2H PRN PRN Reason: SOB/WHEEZING Last Admin: 11/25/18 21:35 Dose: 2.5 mg Albuterol (Ventolin Hfa Inhaler*) 2 puff INH Q2H PRN PRN Reason: SOB/WHEEZING Last Admin: 11/28/18 03:40 Dose: 2 puff Albuterol/Ipratropium (Duoneb (Albuterol 2.5 Mg/Ipratropium 0.5 Mg)) 1 neb INH [id number] AWAKE [facility] Last Admin: 11/28/18 12:55 Dose: 1 neb Alprazolam (Xanax Tab*) 0.25 mg PO TID PRN PRN Reason: ANXIETY Last Admin: 11/28/18 12:02 Dose: 0.25 mg Benzonatate (Tessalon Cap*) 200 mg PO TID PRN PRN Reason: COUGH Last Admin: 11/28/18 11:08 Dose: 200 mg Cetirizine HCl (Zyrtec*) 10 mg PO DAILY [facility] Last Admin: 11/28/18 08:05 Dose: 10 mg Docusate Sodium (Colace Cap*) 100 mg PO BID PRN PRN Reason: CONSTIPATION Enoxaparin Sodium (Lovenox(*)) 40 mg SUBCUT Q24H [facility] Last Admin: 11/28/18 05:47 Dose: 40 mg Fluticasone Propionate (Flonase Nasal [place] 50mcg*) 2 spray BOTH NARES DAILY [facility] Last Admin: 11/28/18 08:05 Dose: 2 spray Guaifenesin (Mucinex*) 600 mg PO BID [facility] Last Admin: 11/28/18 08:05 Dose: 600 mg Azithromycin 250 mg/ Sodium (Chloride) 250 mls @ 250 mls/hr IVPB Q24H [facility] Last Admin: 11/28/18 01:04 Dose: 250 mls/hr Melatonin (Melatonin) 3 mg PO BEDTIME PRN PRN Reason: SLEEP Last Admin: 11/27/18 21:08 Dose: 3 mg Methylprednisolone Sodium Succinate (Solu-Medrol 40 Mg) 40 mg IV Q8H [facility] Last Admin: 11/28/18 18:17 Dose: 40 mg Mometasone Furoate/Formoterol Fumar (Dulera 200/5 Mdi*) 2 puff INH BID [facility] Last Admin: 11/28/18 07:18 Dose: 2 puff Morphine Sulfate (Morphine Inj (Syringe))*) 2 mg IV Q4H PRN PRN Reason: PAIN Last Admin: 11/28/18 12:03 Dose: 2 mg Ondansetron HCl (Zofran Inj*) 4 mg IV Q4H PRN PRN Reason: NAUSEA/VOMITING Senna (Senokot Tab*) 1 tab PO BID PRN PRN Reason: CONSTIPATION Vital Signs - 8 hr 11/28/18 11/28/18 11/28/18 12:02 12:03 12:56 Temperature Pulse Rate 88 Respiratory 22 22 20 Rate Blood Pressure (mmHg) O2 Sat by Pulse 96 Oximetry 11/28/18 11/28/18 15:49 16:16 Temperature 98.0 F Pulse Rate 87 Respiratory 16 18 Rate Blood Pressure 147/77 (mmHg) O2 Sat by Pulse 96 Oximetry Oxygen Devices in Use Now: None Appearance: Comfortable, NAD Eyes: No Scleral Icterus Ears/Nose/Mouth/Throat: Clear Oropharnyx, Mucous Membranes Moist Neck: NL Appearance and Movements; NL JVP Respiratory: Symmetrical Chest Expansion and Respiratory Effort - Wheezing and some coarse rhonchi throughout Cardiovascular: NL Sounds; No Murmurs; No JVD, RRR, No Edema Abdominal: NL Sounds; No Tenderness; No Distention Lymphatic: No Cervical Adenopathy Extremities: No Clubbing, Cyanosis Skin: No Rash or Ulcers Neurological: Alert and Oriented x 3 Nutrition: Taking PO's Result Diagrams: 11/27/18 14:09 11/27/18 14:09 Additional Lab and Data: . Microbiology and Other Data: . Diagnostic Imaging: . Assess/Plan/Problems-Billing Assessment: This is a 78 year old female with history of asthma that presented to the ER with complaints of wheeze and dyspnea, admitted with acute asthma exacerbation. - Patient Problems (1) Asthma exacerbation SNOMED Code(s): 847324912 Comment: - Cont to wheeze and have course breath sounds - Saturation is adequate on room air - Repeat chest xray unremarkable. - Continue mucinex BID and flutter valve - Continue IV steroids, nebs and inhalers (2) Acute anxiety Comment: - Continue low dose xanax TID, anxiety is likely also contributing to current exacerbation (3) HTN (hypertension) Comment: - continue lisinopril daily (4) VIVIANA (obstructive sleep apnea) Comment: - Utilize home CPAP (5) Rib pain on left side Comment: - Persistent with cough and movement, likely secondary to severe asthma exac and accessory muscle use, no relief with tylenol - Continue morphine Q4h PRN (6) Seasonal allergies Comment: - Flonase and cetirizine, may also be contributing to current exacerbation (7) DVT prophylaxis Comment: - Lovenox Status and Disposition: Inpatient, dispo home with VNS when medically optimized. Attending: Kobe Galvan
[2018-11-28] MEDS: Melatonin 3 MG TAB PO PRN (20:24)
[2018-11-29] MEDS: Azithromycin IV(*) 250 MG in NS 0.9% 250 ML* 250 ML IVPB SCH (01:30)
[2018-11-29] MEDS: methylPREDNISolone SOD 40 MG* 1 ML VIAL IV SCH ×3 (01:30→19:42)
[2018-11-29] MEDS: Albuterol/Ipratropium NEB.SOL* Albuterol 2.5 MG/Ipratropium 0.5 MG 3 ML INH SCH ×4 (01:52→19:19)
[2018-11-29] MEDS: Albuterol HFA INHALER* 8 gm MDI INH PRN ×6 (02:27→23:02)
[2018-11-29] MEDS: Enoxaparin(*) 40 MG/0.4 ML SYR SUBCUT SCH (05:14)
[2018-11-29 05:39] LABS: Hematocrit 41 % (35-47); Hemoglobin 13.6 g/dL (12.0-16.0); Mean Corpuscular HGB Conc 33 g/dL (31-36); Mean Corpuscular Hemoglobin 30 pg (27-31); Mean Corpuscular Volume 91 fL (80-97); Mean Platelet Volume 9.6 fL (7.4-10.4); Platelet Count 193 10^3/uL (150-450); Red Blood Count 4.52 10^6 /uL (3.70-4.87); Red Cell Distribution Width 12 % (10.5-15); White Blood Count 12.7 10^3/uL (3.5-10.8)
[2018-11-29 05:55] LABS: BUN/Creatinine Ratio 31.9 (8-20); Calcium 10.1 mg/dL (8.6-10.3); EGFR African American 99.6 (>60); EGFR Non-African American 82.3 (>60); Magnesium 2.3 mg/dL (1.9-2.7); Potassium 4.5 mmol/L (3.5-5.0)
[2018-11-29 06:49] LABS: ABS Neutrophils 11.2 10^3/ul (1.5-7.7)
[2018-11-29] MEDS: Mometasone/Formoter 200/5 MDI INH SCH ×2 (07:51→19:19)
[2018-11-29] MEDS: ALPRAZolam TAB* 0.25 MG PO PRN ×2 (08:45→19:42)
[2018-11-29] MEDS: guaiFENesin ER TAB 600 MG PO SCH ×2 (08:45→19:42)
[2018-11-29] MEDS: Cetirizine* 10 MG TAB PO SCH (08:45)
[2018-11-29] MEDS: Fluticasone NASAL SPRAY 50MCG* 16 gm SPRAY BTL BOTH NARES SCH (08:49)
[2018-11-29] MEDS ORDERED: Morphine 4 MG/ML VIAL (1 ml) 4 MG/ML VIAL IV PRN ×3 (16:35→16:36)
--- NOTE | 2018-11-29 16:35 | PN ---
Subjective Date of Service: 11/29/18 Interval History: Observed ambulating without difficulty on room air. Reports she continues to have significant wheeze and does not feel any better or worse today. She reports some sob and attributes it to wheeze. Denies fever, chills, orthopnea, cp. Objective Active Medications: Acetaminophen (Tylenol Tab*) 650 mg PO Q4H PRN PRN Reason: FEVER/PAIN Last Admin: 11/25/18 18:02 Dose: 650 mg Al Hydrox/Mg Hydrox/Simethicone (Maalox Plus*) 30 ml PO Q6H PRN PRN Reason: INDIGESTION Last Admin: 11/28/18 01:02 Dose: 30 ml Albuterol (Ventolin 2.5 Mg/3 Ml Neb.Lisa*) 2.5 mg INH Q2H PRN PRN Reason: SOB/WHEEZING Last Admin: 11/25/18 21:35 Dose: 2.5 mg Albuterol (Ventolin Hfa Inhaler*) 2 puff INH Q2H PRN PRN Reason: SOB/WHEEZING Last Admin: 11/29/18 14:21 Dose: 2 puff Albuterol/Ipratropium (Duoneb (Albuterol 2.5 Mg/Ipratropium 0.5 Mg)) 1 neb INH [id number] AWAKE [facility] Last Admin: 11/29/18 12:00 Dose: 1 neb Alprazolam (Xanax Tab*) 0.25 mg PO TID PRN PRN Reason: ANXIETY Last Admin: 11/29/18 08:45 Dose: 0.25 mg Benzonatate (Tessalon Cap*) 200 mg PO TID PRN PRN Reason: COUGH Last Admin: 11/28/18 11:08 Dose: 200 mg Cetirizine HCl (Zyrtec*) 10 mg PO DAILY [facility] Last Admin: 11/29/18 08:45 Dose: 10 mg Docusate Sodium (Colace Cap*) 100 mg PO BID PRN PRN Reason: CONSTIPATION Enoxaparin Sodium (Lovenox(*)) 40 mg SUBCUT Q24H [facility] Last Admin: 11/29/18 05:14 Dose: 40 mg Fluticasone Propionate (Flonase Nasal [place] 50mcg*) 2 spray BOTH NARES DAILY [facility] Last Admin: 11/29/18 08:49 Dose: 2 spray Guaifenesin (Mucinex*) 600 mg PO BID [facility] Last Admin: 11/29/18 08:45 Dose: 600 mg Melatonin (Melatonin) 3 mg PO BEDTIME PRN PRN Reason: SLEEP Last Admin: 11/28/18 20:24 Dose: 3 mg Methylprednisolone Sodium Succinate (Solu-Medrol 40 Mg) 40 mg IV Q12H [facility] Mometasone Furoate/Formoterol Fumar (Dulera 200/5 Mdi*) 2 puff INH BID [facility] Last Admin: 11/29/18 07:51 Dose: 2 puff Ondansetron HCl (Zofran Inj*) 4 mg IV Q4H PRN PRN Reason: NAUSEA/VOMITING Senna (Senokot Tab*) 1 tab PO BID PRN PRN Reason: CONSTIPATION Vital Signs - 8 hr 11/29/18 11/29/18 11/29/18 08:45 10:49 11:25 Temperature 97.7 F 97.7 F Pulse Rate 80 Respiratory 16 16 Rate Blood Pressure 149/80 (mmHg) O2 Sat by Pulse 98 Oximetry 11/29/18 11/29/18 11/29/18 11:26 12:00 12:31 Temperature 97.7 F Pulse Rate 80 82 Respiratory 16 16 16 Rate Blood Pressure 149/80 (mmHg) O2 Sat by Pulse 98 94 Oximetry 11/29/18 15:37 Temperature 97.8 F Pulse Rate 86 Respiratory 16 Rate Blood Pressure 149/76 (mmHg) O2 Sat by Pulse 95 Oximetry Oxygen Devices in Use Now: None Appearance: Comfortable, NAD Eyes: No Scleral Icterus Ears/Nose/Mouth/Throat: Clear Oropharnyx, Mucous Membranes Moist Neck: NL Appearance and Movements; NL JVP Respiratory: Symmetrical Chest Expansion and Respiratory Effort, - - Sporadic exp wheeze throughout. Improved aeration from yesterday. No coarse sounds appreciated Cardiovascular: NL Sounds; No Murmurs; No JVD, RRR, No Edema Abdominal: NL Sounds; No Tenderness; No Distention Lymphatic: No Cervical Adenopathy Extremities: No Edema Skin: No Rash or Ulcers Neurological: Alert and Oriented x 3 Nutrition: Taking PO's Result Diagrams: 11/29/18 05:11 11/29/18 05:11 Additional Lab and Data: Laboratory Results - last 24 hr 11/29/18 11/29/18 05:11 05:11 WBC 12.7 H RBC 4.52 Hgb 13.6 Hct 41 MCV 91 MCH 30 MCHC 33 RDW 12 Plt Count 193 MPV 9.6 Neut % (Auto) Not Reportable Lymph % (Auto) Not Reportable [place] % (Auto) Not Reportable Eos % (Auto) Not Reportable Baso % (Auto) Not Reportable Absolute Neuts (auto) Not Reportable Absolute Lymphs (auto) Not Reportable Absolute Monos (auto) Not Reportable Absolute Eos (auto) Not Reportable Absolute Basos (auto) Not Reportable Absolute Nucleated RBC Not Reportable Immature Gran % 1.0 Neutrophils % 87.0 Lymphocytes % 8.0 Monocytes % 4.0 Metamyelocytes % 1.0 Nucleated RBC % Not Reportable Abs Neuts (Manual) 11.2 H Abs Lymphs (Manual) 1.0 Abs Monocytes (Manual) 0.5 Nucleated RBCs/100 WBC 1.0 H Normal RBC Morphology Normal Sodium 137 Potassium 4.5 Chloride 105 Carbon Dioxide 25 Anion Gap 7 BUN 22 Creatinine 0.69 Est GFR ( Amer) 99.6 Est GFR (Non-Af Amer) 82.3 BUN/Creatinine Ratio 31.9 H Glucose 172 H Calcium 10.1 Magnesium 2.3 Microbiology and Other Data: . Diagnostic Imaging: . Assess/Plan/Problems-Billing Assessment: This is a 78 year old female with history of asthma that presented to the ER with complaints of wheeze and dyspnea, admitted with acute asthma exacerbation. - Patient Problems (1) Asthma exacerbation SNOMED Code(s): 586644667 Comment: - Cont to wheeze but no longer having coarse breath sounds. Also noted to have some increase in aeration today - Saturation is adequate on room air - Repeat chest xray unremarkable. - Continue mucinex BID and flutter valve - Continue IV steroids, but start titration - Cont nebs and inhalers - Pulm consult ordered due to slow improvement (2) Acute anxiety Comment: - Continue low dose xanax TID, anxiety is likely also contributing to current exacerbation (3) HTN (hypertension) Comment: - continue lisinopril daily (4) VIVIANA (obstructive sleep apnea) Comment: - Utilize home CPAP (5) Rib pain on left side Comment: - Previously reported right rib pain which she denies today. Suspected it was secondary to persistent with cough and movement, likely secondary to severe asthma exac and accessory muscle use, no relief with tylenol - Cont morphine Q4h PRN (6) Seasonal allergies Comment: - Flonase and cetirizine, may also be contributing to current exacerbation (7) DVT prophylaxis Comment: - Lovenox Status and Disposition: Inpatient, dispo home with VNS when medically optimized. Attending: Kobe Galvan
[2018-11-29] MEDS: Melatonin 3 MG TAB PO PRN (19:42)
[2018-11-30] MEDS: Albuterol/Ipratropium NEB.SOL* Albuterol 2.5 MG/Ipratropium 0.5 MG 3 ML INH SCH ×4 (02:20→20:21)
[2018-11-30] MEDS: Enoxaparin(*) 40 MG/0.4 ML SYR SUBCUT SCH (05:33)
[2018-11-30] MEDS: Mometasone/Formoter 200/5 MDI INH SCH ×2 (07:25→20:21)
[2018-11-30] MEDS: Cetirizine* 10 MG TAB PO SCH (10:22)
[2018-11-30] MEDS: Fluticasone NASAL SPRAY 50MCG* 16 gm SPRAY BTL BOTH NARES SCH (10:23)
[2018-11-30] MEDS: Albuterol HFA INHALER* 8 gm MDI INH PRN ×2 (10:23→20:21)
[2018-11-30] MEDS: guaiFENesin ER TAB 600 MG PO SCH ×2 (10:23→19:25)
[2018-11-30] MEDS: methylPREDNISolone SOD 40 MG* 1 ML VIAL IV SCH ×2 (10:23→19:25)
[2018-11-30] MEDS: ALPRAZolam TAB* 0.25 MG PO PRN ×2 (10:36→19:25)
--- NOTE | 2018-11-30 17:42 | PN ---
Subjective Date of Service: 11/30/18 Interval History: Resting in bed on assessment. Reports wheezing is the same as yesterday. Continues to have mild shortness of breath. Denies cp, palpitations, nausea, vomiting, diarrhea, fever, chills. Objective Active Medications: Acetaminophen (Tylenol Tab*) 650 mg PO Q4H PRN PRN Reason: FEVER/PAIN Last Admin: 11/25/18 18:02 Dose: 650 mg Al Hydrox/Mg Hydrox/Simethicone (Maalox Plus*) 30 ml PO Q6H PRN PRN Reason: INDIGESTION Last Admin: 11/28/18 01:02 Dose: 30 ml Albuterol (Ventolin 2.5 Mg/3 Ml Neb.Lisa*) 2.5 mg INH Q2H PRN PRN Reason: SOB/WHEEZING Last Admin: 11/25/18 21:35 Dose: 2.5 mg Albuterol (Ventolin Hfa Inhaler*) 2 puff INH Q2H PRN PRN Reason: SOB/WHEEZING Last Admin: 11/30/18 10:23 Dose: 2 puff Albuterol/Ipratropium (Duoneb (Albuterol 2.5 Mg/Ipratropium 0.5 Mg)) 1 neb INH [id number] [facility] Last Admin: 11/30/18 12:50 Dose: 1 neb Alprazolam (Xanax Tab*) 0.25 mg PO TID PRN PRN Reason: ANXIETY Last Admin: 11/30/18 10:36 Dose: 0.25 mg Benzonatate (Tessalon Cap*) 200 mg PO TID PRN PRN Reason: COUGH Last Admin: 11/28/18 11:08 Dose: 200 mg Cetirizine HCl (Zyrtec*) 10 mg PO DAILY [facility] Last Admin: 11/30/18 10:22 Dose: 10 mg Docusate Sodium (Colace Cap*) 100 mg PO BID PRN PRN Reason: CONSTIPATION Enoxaparin Sodium (Lovenox(*)) 40 mg SUBCUT Q24H [facility] Last Admin: 11/30/18 05:33 Dose: 40 mg Fluticasone Propionate (Flonase Nasal [place] 50mcg*) 2 spray BOTH NARES DAILY [facility] Last Admin: 11/30/18 10:23 Dose: 2 spray Guaifenesin (Mucinex*) 600 mg PO BID [facility] Last Admin: 11/30/18 10:23 Dose: 600 mg Melatonin (Melatonin) 3 mg PO BEDTIME PRN PRN Reason: SLEEP Last Admin: 11/29/18 19:42 Dose: 3 mg Methylprednisolone Sodium Succinate (Solu-Medrol 40 Mg) 40 mg IV Q12HR [facility] Stop: 11/30/18 23:59 Last Admin: 11/30/18 10:23 Dose: 40 mg Mometasone Furoate/Formoterol Fumar (Dulera 200/5 Mdi*) 2 puff INH BID [facility] Last Admin: 11/30/18 07:25 Dose: 2 puff Morphine Sulfate (Morphine 4 Mg/Ml Vial (1 Ml)) 2 mg IV Q4H PRN PRN Reason: PAIN Ondansetron HCl (Zofran Inj*) 4 mg IV Q4H PRN PRN Reason: NAUSEA/VOMITING Prednisone (Deltasone Tab*) 60 mg PO DAILY [facility] Senna (Senokot Tab*) 1 tab PO BID PRN PRN Reason: CONSTIPATION Vital Signs - 8 hr 11/30/18 11/30/18 11/30/18 10:36 11:30 12:51 Temperature 97.4 F Pulse Rate 86 76 Respiratory 24 16 18 Rate Blood Pressure 136/74 (mmHg) O2 Sat by Pulse 99 98 Oximetry 11/30/18 11/30/18 11/30/18 13:35 15:10 15:15 Temperature 96.6 F 98.6 F Pulse Rate 83 94 Respiratory 18 16 20 Rate Blood Pressure 145/70 152/72 (mmHg) O2 Sat by Pulse 97 97 Oximetry 11/30/18 15:50 Temperature 96.6 F Pulse Rate 83 Respiratory 16 Rate Blood Pressure 145/70 (mmHg) O2 Sat by Pulse 97 Oximetry Oxygen Devices in Use Now: None Appearance: Comfortable, NAD Eyes: No Scleral Icterus Ears/Nose/Mouth/Throat: Clear Oropharnyx, Mucous Membranes Moist Respiratory: Symmetrical Chest Expansion and Respiratory Effort - Wheezing heard throughout, but mildly increased aeration from yesterday Cardiovascular: NL Sounds; No Murmurs; No JVD, RRR Abdominal: NL Sounds; No Tenderness; No Distention Lymphatic: No Cervical Adenopathy Extremities: No Edema Skin: No Rash or Ulcers Neurological: Alert and Oriented x 3 Nutrition: Taking PO's Result Diagrams: 11/29/18 05:11 11/29/18 05:11 Additional Lab and Data: . Microbiology and Other Data: . Diagnostic Imaging: . Assess/Plan/Problems-Billing Assessment: This is a 78 year old female with history of asthma that presented to the ER with complaints of wheeze and dyspnea, admitted with acute asthma exacerbation. - Patient Problems (1) Asthma exacerbation SNOMED Code(s): 431549956 Comment: - Cont to wheeze but no longer having coarse breath sounds. Also noted to have some increase in aeration today - Saturation is adequate on room air - Repeat chest xray unremarkable. - Continue mucinex BID and flutter valve - Continue steriods changed from IV to PO in prep for discharge - Cont nebs and inhalers - Pulm consult ordered (2) Acute anxiety Comment: - Continue low dose xanax TID, anxiety is likely also contributing to current exacerbation (3) HTN (hypertension) Comment: - continue lisinopril daily (4) VIVIANA (obstructive sleep apnea) Comment: - Utilize home CPAP (5) Rib pain on left side Comment: - Previously reported right rib pain which she denies today. Suspected it was secondary to persistent with cough and movement, likely secondary to severe asthma exac and accessory muscle use, no relief with tylenol - Cont morphine Q4h PRN (6) Seasonal allergies Comment: - Flonase and cetirizine, may also be contributing to current exacerbation (7) DVT prophylaxis Comment: - Lovenox Status and Disposition: Inpatient, dispo home with VNS when medically optimized. Attending: Yvonne Spencer
[2018-11-30] MEDS: Melatonin 3 MG TAB PO PRN (19:24)
[2018-12-01] MEDS: Albuterol/Ipratropium NEB.SOL* Albuterol 2.5 MG/Ipratropium 0.5 MG 3 ML INH SCH ×2 (01:25→07:14)
[2018-12-01] MEDS: Albuterol HFA INHALER* 8 gm MDI INH PRN ×5 (04:03→13:54)
[2018-12-01] MEDS: Enoxaparin(*) 40 MG/0.4 ML SYR SUBCUT SCH (05:42)
[2018-12-01] MEDS: Mometasone/Formoter 200/5 MDI INH SCH (08:28)
[2018-12-01] MEDS: Cetirizine* 10 MG TAB PO SCH (08:47)
[2018-12-01] MEDS: guaiFENesin ER TAB 600 MG PO SCH (08:48)
[2018-12-01] MEDS: Fluticasone NASAL SPRAY 50MCG* 16 gm SPRAY BTL BOTH NARES SCH (08:49)
[2018-12-01] MEDS ORDERED: predniSONE TAB* 20 MG PO SCH (09:00)
--- NOTE | 2018-12-01 10:20 | CONS ---
PULMONARY CONSULTATION REPORT: DATE OF CONSULT: 12/01/18 CONSULTATION REQUESTED BY: Neda Perdomo NP. REASON FOR CONSULT: Evaluation of asthma. HISTORY OF PRESENT ILLNESS: The patient is a 78-year-old female with a history of asthma since childhood, seasonal allergies, and obstructive sleep apnea, on CPAP. The patient presents for evaluation of worsening shortness of breath. The patient reports stable asthma, usually at her baseline. She did not have acute exacerbation recently. The patient denies any sick contacts. The patient reports having worsening shortness of breath associated with chest tightness, wheeze, and coughing prior to presentation. She has a history of allergies, is unsure if the allergies have been acting out recently. She has been taking Zyrtec. The patient reports concern with mole exposure at home. Denies nausea, vomiting, or diarrhea. Denied any urinary complaints. The patient has been on Flovent maintenance and albuterol which she uses as needed. She reports she usually benefits from her rescue inhaler; however, not this time. Denies recent travel. She has not been prednisone dependent. She was found to be significantly dyspneic while in the emergency room. She was given Solu-Medrol and magnesium. She was also given nebulizers. The patient was seen and examined at bedside. The patient reports still having chest tightness and wheezing. She has been asking for her rescue inhaler. She claims to be compliant with her inhalers at home; however, I suspect some issues with cognitive impairment resulting in probably not knowing the difference between the rescue and maintenance inhaler. The patient is currently on prednisone 60 mg. She is not requiring O2 supplementation. Chest x-ray was personally reviewed by me, no evidence of pneumonia or airspace opacities. PAST MEDICAL HISTORY: Asthma; hypertension; seasonal allergies; having issues with left-sided headache seeing Neurology; VIVIANA, on CPAP. MEDICATIONS: 1. Lisinopril. 2. Flovent. 3. Albuterol. FAMILY HISTORY: Mother in her 80s with stroke. Father from respiratory issues. SOCIAL HISTORY: Lives at home with her dogs. She is independent in her activities of daily living. Former smoker, quit more than 40 years ago. The patient with a 63-blhe-oimy smoking history. Drinks a glass of wine at bedtime. No drug abuse. REVIEW OF SYSTEMS: All 14 systems reviewed and as per HPI. PHYSICAL EXAM: The patient in bed, in no apparent distress. Vital Signs: Temperature 97.4, pulse 87 beats per minute, respiratory rate 16 per minute, O2 sat 97% on room air, blood pressure 151/89. HEENT: Pupils are equal, reactive to light. Mucous membranes moist. Lungs: Diminished air entry bilaterally, scattered wheezing on auscultation. Cardiovascular: S1, S2 present, regular. Abdomen: Soft, nontender, nondistended. Bowel sounds present. Extremities: Normal range of motion. Skin: No rash or bruises. DIAGNOSTIC STUDIES/LAB DATA: WBC count 12.7, hemoglobin 13.6, hematocrit 41, platelet count 193. Sodium 137, potassium 4.5, chloride 105, bicarb 25, BUN 22 , creatinine 0.69. Chest x-ray as described above in HPI. IMPRESSION AND RECOMMENDATION: 78-year-old female with a remote history of smoking, longstanding history of asthma, admitted with acute asthma exacerbation probably secondary to viral bronchitis. The patient reports feeling poorly. The patient with wheezing; however, part of it could be anxiety in terms of her shortness of breath sensation. The patient is able to move air freely in spite of the wheezing. Her O2 sats have been around 97% on room air. Discussed deep breathing techniques and relief of anxiety with Xanax. Agree with current dose of prednisone, would recommend slow taper of 10 mg weekly. Continue with the nebulizers. Will need nebulizer set up at home. Continue with maintenance inhaler. Role of rescue inhaler was discussed in detail with the patient. She has a history of severe obstructive sleep apnea, on CPAP of 10 cm H2O. The patient has not followed up in sleep clinic for many years. Her sleep apnea needs to be reassessed as outpatient. I do not see that she had any PFTs recently. Will see as outpatient. Thank you for allowing to participate in the care of your patient. I will follow up with you. [id number]/[facility] #: [id number] MYESHA
[2018-12-01] MEDS: Albuterol 2.5 MG/3 ML NEB.SOL* (0.083%) INH PRN (14:28)
[2018-12-01 15:58] VITALS: BP 146/65
--- NOTE | 2018-12-01 18:04 | DS ---
CC: Dr. Jaleesa Ross; Dr. Marino; Dr. Rojas* DISCHARGE SUMMARY: DATE OF ADMISSION: 11/24/18 DATE OF DISCHARGE: 12/01/18 PRIMARY CARE PROVIDER: Dr. Jaleesa Ross. CONSULTING PHYSICIAN: Dr. Marino. OUTPATIENT ENT: Dr. Rojas. ATTENDING PHYSICIAN: Dr. Yvonne Spencer* (dictated by Razia Holcomb NP) PRIMARY DIAGNOSES: 1. Asthma exacerbation. 2. Acute anxiety. 3. Vocal cord dysfunction. 4. Hypertension. 5. Obstructive sleep apnea. 6. Seasonal allergies. CONSULTATIONS WHILE IN THE HOSPITAL: Dr. Marino DISCHARGE HOME MEDICATIONS: Continued home medications: 1. Lisinopril 5 mg p.o. daily. 2. Flovent 110 mcg inhaled b.i.d. as needed. 3. 2 puffs every 4 hours as needed. New home medications: 1. Prednisone 10 mg 42 tabs for 12-day taper, 60 x2 days, 50 x2 days, 40 x2 days, 30 x2 days, 30 x2 days, 20 x2 days, 10 x2 days. 2. Guaifenesin 600 mg p.o. b.i.d. 3. Zyrtec 10 mg p.o. daily. 4. Albuterol nebulizer 2.5 mg inhalation q.2 hours p.r.n. 5. Xanax 0.25 mg p.o. t.i.d. p.r.n., MDD 3 tabs. Changed home medications: No home medications were changed. HISTORY OF PRESENT ILLNESS/HOSPITAL COURSE: Ms. Reese is a 78-year-old female with a past medical history significant for asthma, who presented to the emergency room on 11/24/18 with complaints of shortness of breath and minimal relief with her albuterol with spacer. Please see history and physical dictated by Nancie Zavala DO for complete summary of events leading up to hospitalization, but in short, the patient was admitted to the telemetry unit given her shortness of breath, history of asthma and possible asthma exacerbation. She had a workup that included a chest x-ray that was unremarkable. In addition, the patient had routine vital signs and she remained afebrile, not tachycardic, minimal tachypnea, and maintained her oxygenation on room air during her hospital stay. While admitted to the hospital, the patient was treated for asthma exacerbation with albuterol nebulizers, IV steroids, guaifenesin, and Zyrtec. We suspect allergies could be contributing to her asthma exacerbation. The patient's hospital course was complicated as she continued to have coarse wheezing which could be auscultated from the foot of her bed in her neck. The wheezing throughout her lungs improved but this neck wheezing continued specifically when the patient was under stress. Given this, the patient was evaluated by my attending Dr. Spencer who walked the patient and monitored her oxygen saturation. The patient's oxygen saturation remained at 96% or above during this ambulation. She also noted to not have the wheezing when she was talking. We discussed the possibility of the diagnosis of vocal cord dysfunction on top of her admitting asthma exacerbation. The patient was very reluctant to hear the diagnosis of vocal cord dysfunction and was reluctant to agree to follow up with an ENT for further evaluation and possibly a scope. After some discussion, the patient was agreeable understanding that this disorder can put stress on the vocal cords and she would need further evaluation. I had set up an appointment for the patient to see Dr. Rojas on Thursday at 1:30. Given this wheezing, the patient was also trialed on Xanax during her hospital stay which gave some relief. Therefore, she will be discharged on Xanax. The patient is stable for discharge home today. The patient was also evaluated by Pulmonology, Dr. Marino who agrees with our plan of care of Xanax, steroids, and inhalers. Dr. Marino also recommends that the patient be discharged with nebulizers to help improve her wheezing and to follow up with her as an outpatient. The patient does have a nebulizer machine at home, therefore I have sent a prescription for albuterol to her pharmacy. REVIEW OF SYSTEMS: The patient reports wheezing and some shortness of breath. She denies chest pain, palpitations, headache, dizziness, fever, chills. The patient is able to ambulate without dyspnea and maintain an oxygen saturation above 96%. A 14-point review of systems was completed and all were negative. PHYSICAL EXAMINATION: Vital Signs: Temp 97.4, HR 75, respiratory rate 20, oxygen saturation is 98% on room air, BP is 151/89. General: Ms. Reese is a 78 -year-old female who is sitting in bed, appears to be in no acute distress. Appears stated age. HEENT: EOMs intact. PERRLA. Oral mucosa is moist without lesions. Posterior pharynx is clear. Neck: Supple. No lymphadenopathy. Respiratory: The patient has some wheezing in her upper airways especially that exacerbated with anxiety, but not heard when she is speaking. Her lungs have good aeration. She has scant expiratory wheeze in her lungs. She has no rhonchi or rales. Cardiac: S1, S2 present. Regular rate and rhythm. No murmurs, rubs, or gallops. Abdomen: Soft, nontender. Bowel sounds normoactive. Extremities: No edema. No clubbing or cyanosis. Pedal pulses 2+ bilaterally. Musculoskeletal: She has no pain or deformity. Skin: Grossly intact. Neuro: Neuro exam is grossly intact. No focal deficits or weakness. LABORATORY DATA: WBC 12.7, hemoglobin 13.6, hematocrit 41, platelets 139. Sodium 137, potassium 4.5, chloride 105, carbon dioxide 25, BUN 22, creatinine 0.69. Glucose 162, magnesium 2.3. DISCHARGE PLANS/FOLLOWUP: 1. Asthma exacerbation: As mentioned above, the patient was admitted with the asthma exacerbation and treated with inhalers, steroids, Mucinex, and allergy medication. The patient has been successfully weaned from IV steroids as she has had an improvement in her lung aeration and wheezing. The patient should continue her nebulizers and inhalers at home. The patient should follow up with Dr. Marino as an outpatient as she was seen here by her. The patient's O2 saturation is adequate on room air, therefore, she will not be discharged with supplemental oxygen. 2. Vocal cord dysfunction: As mentioned above, we are concerned that the patient could have a component of vocal cord dysfunction given her upper airway like neck wheezing. I set up an appointment with Dr. Rojas to see the patient on 12/06/18 at 1:30 for further evaluation. I would highly recommend that the patient keep this appointment. In addition, I have sent the patient home with Xanax t.i.d. as anxiety could be exacerbating the vocal cord dysfunction. 3. Hypertension: The patient should continue her lisinopril daily. 4. VIVIANA: The patient should continue her CPAP at home. 5. Seasonal allergies: As mentioned above, we believe this could be contributing to the patient's asthma exacerbation, therefore, she should continue with the allergy medication at home. 6. Leukocytosis: As you know, the patient did have mild leukocytosis prior to discharge, but this is the only elevated white count she had during her stay. I suspect this is due to the IV steroids she has been on during her admission. She is afebrile and she has no tachycardia. I had recommended to follow up CBC in 1 week. 7. Followup: The patient should follow with her primary care provider in 1 to 3 days. The patient should follow up with Dr. Rojas as scheduled on Thursday , 12/06/18 at 1:30. 8. Education: The patient was educated on new or worsening condition and when to return to the emergency department and the patient states understanding. This is a summarized report of a complex medical history and hospital stay. For further details, please see the entire medical record. TIME SPENT: Approximately 45 minutes was spent on this discharge, greater than half of the time was spent [id number] with the patient discussing discharge plans and instructions. This plan was also discussed with my attending, Dr. Yvonne Spencer, who agrees with my plan of care. RAZIA HOLCOMB, JESSY [id number]/[facility] #: [id number] MYESHA
== END 2018-12-01 17:50 | disposition home health service (06) | DRG 203 ==
LOC: ED 15:30 → MEDTELE 22:55 → INTOOBSV 22:55 → MEDTELE 11-25 17:52
PROVIDERS: ADMIT Pediatrics; ATTEND Internal Medicine
PROC: 5A09457 Assistance with Respiratory Ventilation, 24-96 Consecutive Hours, Continuous Positive Airway Pressure (ICD-10-PCS; principal; 2018-11-25)
DX: J45.901 Unspecified asthma with (acute) exacerbation (principal); I10 Essential (primary) hypertension; G47.33 Obstructive sleep apnea (adult) (pediatric); R00.0 Tachycardia, unspecified; F41.9 Anxiety disorder, unspecified; R07.81 Pleurodynia; J30.2 Other seasonal allergic rhinitis; J38.3 Other diseases of vocal cords; Z99.89 Dependence on other enabling machines and devices; Z79.899 Other long term (current) drug therapy; Z91.013 Allergy to seafood; Z82.3 Family history of stroke; Z82.5 Family history of asthma and other chronic lower respiratory diseases; Z87.891 Personal history of nicotine dependence
CPT/HCPCS: 36415; 71045; 71046; 80048; 80053; 83735; 83880; 85025; 86140; 90686; 90732; 94640; 94660; 96365; 96372; 96375; 99284; A9270-GY; G0378; J0456; J1650; J1885; J2270; J2920; J2930; J3475; J7512; J7611

== ENCOUNTER 2021-01-26 19:00 | Observation (INO) ==
[2021-01-26] MEDS ORDERED: NS 0.9% 1000 ml BAG 1,000 ML IV ONE (19:20)
[2021-01-26 20:38] LABS: ABS Lymphocytes 1.1 10^3/ul (1.0-4.8); ABS Monocytes 0.6 10^3/ul (0-0.8); ABS Neutrophils 9.9 10^3/ul (1.5-7.7); Hematocrit 41 % (35-47); Hemoglobin 13.8 g/dL (12.0-16.0); Lymphocyte % 9.2 %; Mean Corpuscular HGB Conc 34 g/dL (31-36); Mean Corpuscular Hemoglobin 31 pg (27-31); Mean Corpuscular Volume 91 fL (80-97); Mean Platelet Volume 9.3 fL (7.4-10.4); Platelet Count 182 10^3/uL (150-450); Red Blood Count 4.49 10^6 /uL (3.70-4.87); Red Cell Distribution Width 13 % (10-15); White Blood Count 11.6 10^3/uL (3.5-10.8)
[2021-01-26 20:45] LABS: INR 1.09 (0.86-1.15)
[2021-01-26 20:55] LABS: Albumin 4.5 g/dL (3.2-5.2); Albumin/Globulin Ratio 1.9 (1-3); C Reactive Protein 1.1 mg/L (<8.01); Calcium 9.9 mg/dL (8.6-10.3); EGFR African American 94.3 (>60); EGFR Non-African American 77.9 (>60); Globulin 2.4 g/dL (2-4); Potassium 3.7 mmol/L (3.5-5.0); Total Bilirubin 1.3 mg/dL (0.2-1.0); Total Protein 6.9 g/dL (6.4-8.9)
[2021-01-26 21:09] LABS: TSH Ultra Thyroid Stim Horm 2.22 mcIU/mL (0.34-5.60)
[2021-01-27] MEDS ORDERED: Ondansetron 4 mg VIAL 2 MG/ML 2 ml VIAL IV PRN (02:15)
[2021-01-27] MEDS ORDERED: Albuterol HFA INHALER 8 gm MDI INH PRN (02:17)
[2021-01-27 07:04] LABS: ABS Lymphocytes 1.3 10^3/ul (1.0-4.8); ABS Monocytes 0.5 10^3/ul (0-0.8); Eosinophil % 0.5 %; Hematocrit 38 % (35-47); Hemoglobin 12.6 g/dL (12.0-16.0); Lymphocyte % 18.5 %; Mean Corpuscular HGB Conc 33 g/dL (31-36); Mean Corpuscular Hemoglobin 31 pg (27-31); Mean Corpuscular Volume 93 fL (80-97); Mean Platelet Volume 9.4 fL (7.4-10.4); Nucleated Red Blood Cells % 0.1; Platelet Count 142 10^3/uL (150-450); Red Blood Count 4.09 10^6 /uL (3.70-4.87); Red Cell Distribution Width 13 % (10-15); White Blood Count 6.8 10^3/uL (3.5-10.8)
[2021-01-27 07:21] LABS: Albumin 3.9 g/dL (3.2-5.2); Albumin/Globulin Ratio 2.2 (1-3); Calcium 9.5 mg/dL (8.6-10.3); EGFR African American 88.6 (>60); EGFR Non-African American 73.2 (>60); Globulin 1.8 g/dL (2-4); Potassium 3.5 mmol/L (3.5-5.0); Total Bilirubin 1.3 mg/dL (0.2-1.0); Total Protein 5.7 g/dL (6.4-8.9)
[2021-01-27] MEDS: Mometasone 220 MCG MDI INH SCH (08:10)
[2021-01-27] MEDS: Aspirin EC 81 mg TAB.EC (enteric coated) PO SCH (10:46)
[2021-01-27] MEDS: Enoxaparin 40 MG/0.4 ML SYR SUBCUT SCH (10:47)
[2021-01-27 11:54] LABS: Urine Appearance Cloudy; Urine Bilirubin Negative (Negative); Urine Blood Negative (Negative); Urine Color Amber; Urine Glucose Negative (Negative); Urine Ketones Negative (Negative); Urine Nitrite Negative (Negative); Urine Protein 1+(30 mg/dL) (Negative); Urine Urobilinogen Negative (Negative)
[2021-01-27 12:03] LABS: Urine Bacteria Absent (Absent); Urine Red Blood Cell Trace(0-2/hpf) (Absent); Urine Squamous Epithelial Cell Present (Absent); Urine White Blood Cell 1+(6-10/hpf) (Absent)
[2021-01-27] MEDS ORDERED: Iohexol 300 (CONTRAST) 10 ML SDV IV ONE (18:46)
[2021-01-28] MEDS: Mometasone 220 MCG MDI INH SCH (08:08)
[2021-01-28] MEDS: Aspirin EC 81 mg TAB.EC (enteric coated) PO SCH (10:58)
[2021-01-28] MEDS: Enoxaparin 40 MG/0.4 ML SYR SUBCUT SCH (11:07)
[2021-01-29] MEDS: Mometasone 220 MCG MDI INH SCH (07:49)
[2021-01-29] MEDS: Enoxaparin 40 MG/0.4 ML SYR SUBCUT SCH (08:56)
[2021-01-29] MEDS: Aspirin EC 81 mg TAB.EC (enteric coated) PO SCH (08:57)
[2021-01-29 21:10] LABS: Direct Bilirubin 0.2 mg/dL (0.03-0.18)
[2021-01-30] MEDS: Enoxaparin 40 MG/0.4 ML SYR SUBCUT SCH (07:42)
[2021-01-30] MEDS: Aspirin EC 81 mg TAB.EC (enteric coated) PO SCH (07:42)
[2021-01-30] MEDS: Mometasone 220 MCG MDI INH SCH (08:18)
[2021-01-31] MEDS: Mometasone 220 MCG MDI INH SCH (07:59)
[2021-01-31] MEDS: Enoxaparin 40 MG/0.4 ML SYR SUBCUT SCH (08:54)
[2021-01-31] MEDS: Aspirin EC 81 mg TAB.EC (enteric coated) PO SCH (08:54)
[2021-01-31] MEDS ORDERED: Magnesium Hydroxide LIQ 30 ML UDC PO PRN (12:05)
[2021-01-31 13:14] VITALS: BP 125/64
== END 2021-01-31 16:00 ==
LOC: MED 19:00 → ED 19:00 → MED 01-27 05:59
PROVIDERS: ADMIT Hospitalist; ATTEND Hospitalist

== ENCOUNTER 2024-06-10 14:56 | Inpatient (IN) ==
[2024-06-10 20:13] LABS: ABS Basophils 0.1 10^3/uL (0.0-0.1); ABS Lymphocytes 1.7 10^3/uL (1.0-4.8); ABS Monocytes 0.5 10^3/uL (0.0-0.9); ABS Neutrophils 8.1 10^3/uL (1.5-7.6); ABS Nucleated RBC 0.01 10^3/ul; Eosinophil % 0.5 %; Hematocrit 35.9 % (35-45); Hemoglobin 11.6 g/dL (11.5-14.3); Lymphocyte % 16.2 %; Mean Corpuscular Hemoglobin 30.3 pg (27-33); Mean Corpuscular Hgb Conc 32.3 g/dL (31-36); Mean Corpuscular Volume 93.8 fL (80-97); Mean Platelet Volume 10.6 fL (7.5-11.2); Nucleated Red Blood Cells % 0.1 %/100WBC (0.0-0.8); Platelet Count 210 10^3/uL (150-450); Red Blood Count 3.83 10^6/uL (3.63-4.92); Red Cell Distribution Width 15.9 % (12-17); White Blood Count 10.5 10^3/uL (3.8-11.8)
[2024-06-10 20:32] LABS: Activated Partial Thrombo Time 27.1 seconds (26.0-38.0); INR 1.04 (0.85-1.14)
[2024-06-10 20:46] LABS: Albumin 3.6 g/dL (3.2-5.2); Albumin/Globulin Ratio 2.1 (1-3); C Reactive Protein 12.55 mg/L (<8.01); Calcium 10.9 mg/dL (8.6-10.3); Globulin 1.7 g/dL (2-4); Potassium 4.1 mmol/L (3.5-5.0); Total Bilirubin 0.5 mg/dL (0.2-1.0); Total Protein 5.3 g/dL (6.4-8.9); eGFR CKD-EPI 55.9 (>60)
[2024-06-10] MEDS: Lactated Ringers 1000 ml BAG IV.FLUID IV ONE (20:53)
[2024-06-10 21:27] LABS: High Sensitivity Troponin 1 Hr 12 pg/mL (<15)
[2024-06-10 22:35] LABS: Urine Appearance Turbid; Urine Bilirubin Negative (Negative); Urine Blood Negative (Negative); Urine Color Yellow; Urine Glucose Negative (Negative); Urine Ketones Negative (Negative); Urine Nitrite Negative (Negative); Urine Protein 1+ (>=30 mg/dL) (Negative); Urine Specific Gravity 1.031 (1.002-1.030); Urine Urobilinogen Negative (Negative); Urine pH 5.5 (5.0-8.0)
[2024-06-10 22:38] LABS: Budding Yeast Present /HPF (Absent); Urine Bacteria Absent /HPF (Absent); Urine Red Blood Cell 3+(>10/hpf) /HPF (0-Trace); Urine Squamous Epithelial Cell Present /HPF (Absent); Urine White Blood Cell 1+(6-10/hpf) /HPF (0-Trace)
[2024-06-10] MEDS ORDERED: Albuterol HFA INHALER 8 gm MDI INH PRN (23:24)
[2024-06-11 05:55] LABS: ABS Basophils 0.1 10^3/uL (0.0-0.1); ABS Eosinophils 0.1 10^3/uL (0.0-0.5); ABS Lymphocytes 1.7 10^3/uL (1.0-4.8); ABS Monocytes 0.4 10^3/uL (0.0-0.9); ABS Neutrophils 6.2 10^3/uL (1.5-7.6); Hematocrit 32.8 % (35-45); Hemoglobin 10.5 g/dL (11.5-14.3); Lymphocyte % 20.3 %; Mean Corpuscular Hemoglobin 29.9 pg (27-33); Mean Corpuscular Hgb Conc 32.1 g/dL (31-36); Mean Corpuscular Volume 93.2 fL (80-97); Mean Platelet Volume 10.7 fL (7.5-11.2); Platelet Count 174 10^3/uL (150-450); Red Blood Count 3.52 10^6/uL (3.63-4.92); Red Cell Distribution Width 15.4 % (12-17); White Blood Count 8.5 10^3/uL (3.8-11.8)
[2024-06-11 06:05] LABS: Creatinine, Serum 0.93 mg/dL (0.51-0.95); Potassium 4.3 mmol/L (3.5-5.0)
[2024-06-11] MEDS: NS 0.9% 1000 ml BAG 1,000 ML IV SCH (10:11)
[2024-06-11] MEDS: Enoxaparin 40 MG/0.4 ML SYR SUBCUT SCH ×2 (11:15→12:06)
[2024-06-11] MEDS: Mometasone/Formoter 100/5 MDI INH SCH (19:35)
[2024-06-12 06:55] LABS: Calcium 9.4 mg/dL (8.6-10.3); Creatinine, Serum 0.75 mg/dL (0.51-0.95); Potassium 4.1 mmol/L (3.5-5.0); eGFR CKD-EPI 78.9 (>60)
[2024-06-12] MEDS: Lactated Ringers 1000 ml BAG 1,000 ML IV SCH (10:12)
[2024-06-12] MEDS: Lactated Ringers 1000 ml BAG 1,000 ML IV ONE (16:03)
[2024-06-13 05:52] LABS: Hematocrit 27.1 % (35-45); Hemoglobin 8.7 g/dL (11.5-14.3); Mean Corpuscular Hemoglobin 30.5 pg (27-33); Mean Corpuscular Hgb Conc 31.9 g/dL (31-36); Mean Corpuscular Volume 95.6 fL (80-97); Platelet Count 124 10^3/uL (150-450); Red Blood Count 2.84 10^6/uL (3.63-4.92); Red Cell Distribution Width 15.7 % (12-17); White Blood Count 4.4 10^3/uL (3.8-11.8)
[2024-06-13 06:49] LABS: Creatinine, Serum 0.68 mg/dL (0.51-0.95); Potassium 3.9 mmol/L (3.5-5.0); eGFR CKD-EPI 86.4 (>60)
[2024-06-13 16:44] LABS: Hematocrit 27.6 % (35-45)
[2024-06-14 06:31] LABS: Hematocrit 26.5 % (35-45); Hemoglobin 8.7 g/dL (11.5-14.3); Mean Corpuscular Hemoglobin 30.1 pg (27-33); Mean Corpuscular Hgb Conc 32.8 g/dL (31-36); Mean Corpuscular Volume 91.7 fL (80-97); Platelet Count 135 10^3/uL (150-450); Red Blood Count 2.89 10^6/uL (3.63-4.92); Red Cell Distribution Width 15.5 % (12-17); White Blood Count 3.7 10^3/uL (3.8-11.8)
[2024-06-14 06:45] LABS: Creatinine, Serum 0.65 mg/dL (0.51-0.95); Potassium 3.5 mmol/L (3.5-5.0); eGFR CKD-EPI 87.3 (>60)
[2024-06-15 12:23] LABS: Calcium 9.4 mg/dL (8.6-10.3); Creatinine, Serum 0.61 mg/dL (0.51-0.95); Potassium 3.5 mmol/L (3.5-5.0); eGFR CKD-EPI 88.7 (>60)
[2024-06-15] MEDS: NS 0.9% 1000 ml BAG 1,000 ML IV ONE (14:14)
[2024-06-16 06:34] LABS: Hematocrit 25.9 % (35-45); Hemoglobin 8.7 g/dL (11.5-14.3); Mean Corpuscular Hemoglobin 30.9 pg (27-33); Mean Corpuscular Hgb Conc 33.6 g/dL (31-36); Mean Corpuscular Volume 91.9 fL (80-97); Mean Platelet Volume 9.8 fL (7.5-11.2); Platelet Count 149 10^3/uL (150-450); Red Blood Count 2.81 10^6/uL (3.63-4.92); Red Cell Distribution Width 15.2 % (12-17); White Blood Count 4.7 10^3/uL (3.8-11.8)
[2024-06-16 06:54] LABS: Calcium 8.9 mg/dL (8.6-10.3); Creatinine, Serum 0.57 mg/dL (0.51-0.95); Potassium 3.6 mmol/L (3.5-5.0); eGFR CKD-EPI 90.1 (>60)
[2024-06-17 16:34] LABS: ABS Basophils 0.1 10^3/uL (0.0-0.1); ABS Eosinophils 0.1 10^3/uL (0.0-0.5); ABS Lymphocytes 1.3 10^3/uL (1.0-4.8); ABS Monocytes 0.4 10^3/uL (0.0-0.9); ABS Neutrophils 5.1 10^3/uL (1.5-7.6); ABS Nucleated RBC 0.01 10^3/ul; Eosinophil % 1.1 %; Hematocrit 27.3 % (35-45); Lymphocyte % 18.6 %; Mean Corpuscular Hemoglobin 30.2 pg (27-33); Mean Corpuscular Hgb Conc 32.8 g/dL (31-36); Mean Platelet Volume 9.3 fL (7.5-11.2); Nucleated Red Blood Cells % 0.2 %/100WBC (0.0-0.8); Platelet Count 207 10^3/uL (150-450); Red Blood Count 2.97 10^6/uL (3.63-4.92); Red Cell Distribution Width 15.3 % (12-17); White Blood Count 6.9 10^3/uL (3.8-11.8)
[2024-06-17 16:57] LABS: Calcium 9.7 mg/dL (8.6-10.3); Creatinine, Serum 0.57 mg/dL (0.51-0.95); Potassium 4.1 mmol/L (3.5-5.0); eGFR CKD-EPI 90.1 (>60)
[2024-06-18] MEDS: cefTRIAXone 1 gm/50 mL D5W 1 GM/50 ML BAG IV SCH (21:52)
[2024-06-19] MEDS: NS 0.9% 500 ml BAG 500 ML IV ONE (03:18)
[2024-06-19 09:20] LABS: Hematocrit 29.6 % (35-45); Hemoglobin 8.8 g/dL (11.5-14.3); Mean Corpuscular Hemoglobin 30.4 pg (27-33); Mean Corpuscular Hgb Conc 29.8 g/dL (31-36); Mean Platelet Volume 8.9 fL (7.5-11.2); Platelet Count 212 10^3/uL (150-450); White Blood Count 5.8 10^3/uL (3.8-11.8)
[2024-06-19] MEDS: Lactated Ringers 1000 ml BAG 1,000 ML IV ONE (09:42)
[2024-06-19 09:50] LABS: Creatinine, Serum 0.53 mg/dL (0.51-0.95); Potassium 3.8 mmol/L (3.5-5.0); eGFR CKD-EPI 91.7 (>60)
[2024-06-19] MEDS: Potassium Chloride LIQUID 20 MEQ/15 ML LIQUID PO ONE (21:02)
[2024-06-21 06:55] VITALS: BP 92/81
[2024-06-21] MEDS ORDERED: cefTRIAXone 1 gm/50 mL D5W 1 GM/50 ML BAG IV ONE (20:30)
== END 2024-06-21 11:35 | DRG 640 ==
LOC: ED 14:56 → EDHOLD 14:56 → SUATTDRO 23:05 → MEDTELE 06-11 03:20 → SUATTDRO 06-13 12:00
PROVIDERS: ADMIT Internal Medicine; ATTEND Internal Medicine